=== PATIENT | female | born 1955 | race Caucasian/White ===

== ENCOUNTER 2019-09-25 09:59 | Outpatient (CLI) | payer MEDICARE, MEDICAID, SELFPAY ==
--- NOTE | 2019-09-25 10:13 | US_ITS ---
WS: [id number] ADDITIONAL VIEWS LEFT MAMMOGRAM LEFT BREAST ULTRASOUND HISTORY: ABNORMAL BREAST EXAM COMPARISON: 07/23/2019 and 06/19/2016 LEFT MAMMOGRAM: Spot compression views and true ML. Persistent and progressive skin thickening along the anterior breast. Skin thickening measures up to 6.3 mm anteriorly around the nipple. There is no underlying mass. Single benign-appearing calcificati on. LEFT BREAST ULTRASOUND 2-D and color Doppler imaging submitted. Ultrasound is directed to the anterior LEFT breast in the subareolar location. There is soft tissue t hickening and edema. More prominent skin thickening near the 10:00 axis by the nipple. There is no in traparenchymal mass identified. No enlarged lymph nodes. There are several benign-appearing lymph nod es in the LEFT axilla with normal fatty roopa. Notified Jenny Roman DO at 09/25/2019 11:20 AM. US/US breast LT limited* [id number] IMPRESSION: BI-RADS: 4C-Suspicious: Moderate FOLLOW UP: Biopsy Recommended 1. Progressive skin thickening around the LEFT nipple. Findings suspicious for inflammatory breast cancer or Paget's disease. No discrete mass identified are a 2. Punch biopsy recommended.
== END 2019-09-25 10:00 | disposition home or self-care (01) ==
LOC: RADSHAW 10:05
PROVIDERS: Family Provider Family Medicine; PCP Family Medicine; Visit Provider Family Medicine
DX: N63.42 Unspecified lump in left breast, subareolar (principal); N64.59 Other signs and symptoms in breast; R93.89 Abnormal findings on diagnostic imaging of other specified body structures
CPT/HCPCS: 76642; 77065

== ENCOUNTER → 2019-10-21 10:54 | Outpatient (BNVA) | payer MEDICARE, MEDICAID, SELFPAY | PROVIDERS: Family Provider Family Medicine; PCP Family Medicine; Visit Provider Nurse Practitioner | DX: F33.2 Major depressive disorder, recurrent severe without psychotic features (principal); F10.21 Alcohol dependence, in remission; F17.218 Nicotine dependence, cigarettes, with other nicotine-induced disorders | CPT/HCPCS: 99213 ==

== ENCOUNTER → 2020-04-12 08:35 | Outpatient (BNVA) | payer MEDICARE, MEDICAID, SELFPAY | PROVIDERS: Family Provider Family Medicine; PCP Family Medicine; Visit Provider Nurse Practitioner | DX: F33.2 Major depressive disorder, recurrent severe without psychotic features (principal); F10.21 Alcohol dependence, in remission; F17.218 Nicotine dependence, cigarettes, with other nicotine-induced disorders | CPT/HCPCS: 99213 ==

== ENCOUNTER 2020-04-21 18:34 | Emergency (ER) | payer MEDICARE, MEDICAID, SELFPAY ==
[2020-04-21 18:50] VITALS: BP 201/75; PULSE 86; RESP 18; TEMP 39.1; O2SAT 91; BMI 23.0
--- NOTE | 2020-04-21 19:42 | XRR_ITS ---
PROCEDURE INFORMATION: Exam: XR Chest, 1 View Exam date and time: 04/21/2020 8:01 PM Age: 64 years old Clinical indication: Fever; Patient HX: Throat pain and swelling; Additional info: Fever x 2 days TECHNIQUE: Imaging protocol: XR of the chest Views: 1 view. COMPARISON: CR Chest 1 [place] [id number] 06/25/2018 1:00 PM FINDINGS: Lungs: Left upper lobe and bilateral lower lung interstitial or partially alveolar opacities. Pleural space: Unremarkable. No pleural effusion. No pneumothorax. Heart/Mediastinum: Stable heart size. Bones/joints: Plate fixation lower cervical spine. Degenerative change of thoracic spine. Osteopenia. XR/XR chest 1V portable [id number] IMPRESSION: Left upper lobe and bilateral lower lung opacities concerning for pneumonia could be atypical or viral in origin.
--- NOTE | 2020-04-21 19:47 | W.ED.FEVER ---
HPI - Fever General: Chief Complaint: Fever Stated Complaint: throat pain and swelling Time Seen by Provider: 04/21/20 19:42 Source: patient Mode of arrival: ambulatory Limitations: no limitations History of Present Illness: HPI Narrative: 64-year-old female comes in with 2-day history of sore throat and fever. Patient denies any other complaints P. Patient appears mildly unwell. Patient appears in mild pain. MD elicited complaint: fever Review of Systems General: Reports: 10 or more systems reviewed and unremarkable except in HPI and below Const: Reports: fever(s) ENMT: Reports: throat pain PFSH ED PFSH: Medical History (Updated 04/21/20 @ 21:44 by TOMASZ Castillo) Alcohol dependence, in remission Major depressive disorder, recurrent severe without psychotic features Nicotine dependence, cigarettes, with other nicotine-induced disorders Social History (Updated 10/21/19 @ 11:03 by Aida Olson LPN) Smoking and tobacco status: current every day smoker cigarettes Packs smoked per day: 1 Smoking risk assessment/counseling performed?: Yes Tobacco counseling given: counseling >3 minutes Physical Exam Const: COMMON NORMALS: no acute distress and patient oriented x3 GENERAL APPEARANCE: cooperative HENMT: COMMON NORMALS: normocephalic, TM's normal bilaterally and Normal external nose present HEAD & SCALP: normal to inspection and normocephalic NOSE: Normal external nose present TYMPANIC MEMBRANE: TM's normal bilaterally MOUTH: Normal oral and palatal mucosa present THROAT: other Eye: GENERAL EYE: appearance normal, both eyes and all related structures Neck/C-Spine: COMMON NORMALS: full ROM Lymph: LYMPHATIC: no lymphadenopathy noted Chest: COMMONS NORMALS: normal inspection of the chest Resp: COMMON NORMALS: normal respiratory effort EFFORT & INSPECTION: Yes able to speak in complete sentences Cardio: COMMON NORMALS: regular rate and regular rhythm RATE: regular rate RHYTHM: regular rhythm GI: COMMON NORMALS: non-tender : COMMON NORMALS: Yes no CVA tenderness BLADDER/KIDNEY EXAM: Yes no CVA tenderness Back/Pelvis: COMMON NORMALS: no CVA tenderness and thoracic and lumbar spine normal to inspection Extremity: COMMON NORMALS: normal to inspection Neuro: COMMON NORMALS: patient oriented x3 and moves all extremities Psych: COMMON NORMALS: mental status grossly normal and cooperative Skin: COMMON NORMALS: no rashes or lesions noted GENERAL SKIN EXAM: no rashes or lesions noted Course Vital Signs: Vital signs: Vital Signs Temperature 99.2 F 04/21/20 21:23 Pulse Rate 74 04/21/20 21:23 Respiratory Rate 20 H 04/21/20 21:23 Blood Pressure 181/74 04/21/20 21:23 Pulse Oximetry 96 04/21/20 21:23 MDM - Fever MDM Narrative: Medical decision making narrative: Patient comes in today with complaints of sore throat and fever. On exam patient has erythema to the pharynx with exudate to the tonsils. Differential diagnosis includes but not limited to viral infection, strep pharyngitis, influenza. COVID and influenza are both negative. Strep pharyngitis was negative. Patient was given medication for treatment of sore throat with some improvement. Patient will be started on antibiotics as directed with cephalexin 503 times a day for 7 days. Reviewed exam with patient with recommendations for treatment follow-up. Patient reported understanding. Lab Data: Labs: Lab Results 04/21/20 04/21/20 04/21/20 Range/Units 20:14 20:14 20:20 WBC (4.0-10.0) 10^3/ uL RBC (4.1-5.3) 10^6/u L Hgb (11.5-15.3) g/dL Hct (37.0-47.0) % MCV (81-99) fL MCH (28.0-34.0) pg MCHC (30.0-36.0) g/dL RDW (12.1-15.1) % Plt Count (130-400) 10^3/c mm MPV (7.4-10.4) fL Neut % (Auto) % Lymph % (Auto) % [place] % (Auto) % Eos % (Auto) % Baso % (Auto) % Neut # (Auto) (1.8-7.7) 10^3/u L Lymph # (Auto) (0.8-4.8) 10^3/u L [place] # (Auto) (0.2-0.9) 10^3/u L Eos # (Auto) (0.0-0.8) 10^3/u L Baso # (Auto) (0.0-0.1) 10^3/u L Nucleated RBC % (a uto) % Nucleated RBCs # /100WBC Sodium (136-145) mmol/L Potassium (3.5-5.1) mmol/L Chloride (98-107) mmol/L Carbon Dioxide (22-29) mmol/L Anion Gap (5-19) BUN (8-23) mg/dL Creatinine (0.5-0.9) mg/dL GFR Calculation (90-130) mL/min Glucose (65-115) mg/dL Calculated Osmolal ity (285-295) mOsm/k g Lactic Acid (0.5-2.2) mmol/L Calcium (8.5-10.5) mg/dL Total Bilirubin (0.15-1.2) mg/dL AST (0-32) U/L ALT (0-33) U/L Alkaline Phosphata se (35-105) IU/L Total Protein (6.6-8.7) g/dL Albumin (3.5-5.2) g/dL Globulin (1.3-4.6) g/dL Urine Color Yellow (Yellow) Urine Appearance Cloudy (CLEAR) Urine pH 6 (5-7) Ur Specific Gravit y 1.010 (1.005-1.030) Urine Protein 3+ H (Negative) Urine Glucose (UA) Norm (Normal) Urine Ketones Negative (Negative) Urine Blood 2+ H (Negative) Urine Nitrate Negative (Negative) Urine Bilirubin Neg (Negative) Urine Urobilinogen 8 H (Negative) mg/dL Ur Leukocyte Maranda ase Negative (Negative) Urine RBC 5-10 H (0-2) /hpf Urine WBC 0-4 H (0-5) /hpf Ur Squamous Epith Cells 0-4 H (0-5) /hpf Amorphous Sediment Not Reportable Urine Bacteria 1+ H (NONE) /hpf Influenza Type A A g (Negative) Influenza Type B A g (Negative) SARS-CoV-2 Ag (Rap id) Negative (Negative) Group A Strep Rapi d Negative (Negative) 04/21/20 04/21/20 04/21/20 Range/Units 20:30 20:30 20:30 WBC 15.4 H (4.0-10.0) 10^3/ uL RBC 4.92 (4.1-5.3) 10^6/u L Hgb 14.7 (11.5-15.3) g/dL Hct 43.8 (37.0-47.0) % MCV 89.0 (81-99) fL MCH 29.9 (28.0-34.0) pg MCHC 33.6 (30.0-36.0) g/dL RDW 12.3 (12.1-15.1) % Plt Count 187 (130-400) 10^3/c mm MPV 11.1 H (7.4-10.4) fL Neut % (Auto) 84.1 % Lymph % (Auto) 11.3 % [place] % (Auto) 3.0 % Eos % (Auto) 0.5 % Baso % (Auto) 0.5 % Neut # (Auto) 12.95 H (1.8-7.7) 10^3/u L Lymph # (Auto) 1.7 (0.8-4.8) 10^3/u L [place] # (Auto) 0.5 (0.2-0.9) 10^3/u L Eos # (Auto) 0.1 (0.0-0.8) 10^3/u L Baso # (Auto) 0.1 (0.0-0.1) 10^3/u L Nucleated RBC % (a uto) 0 % Nucleated RBCs # 0.0 /100WBC Sodium 134 L (136-145) mmol/L Potassium 3.1 L (3.5-5.1) mmol/L Chloride 99 (98-107) mmol/L Carbon Dioxide 20 L (22-29) mmol/L Anion Gap 18.1 (5-19) BUN 9 (8-23) mg/dL Creatinine 0.5 (0.5-0.9) mg/dL GFR Calculation 124.2 (90-130) mL/min Glucose 111 (65-115) mg/dL Calculated Osmolal ity 277 L (285-295) mOsm/k g Lactic Acid 1.5 (0.5-2.2) mmol/L Calcium 9.4 (8.5-10.5) mg/dL Total Bilirubin 0.8 (0.15-1.2) mg/dL AST 23 (0-32) U/L ALT 12 (0-33) U/L Alkaline Phosphata se 111 H (35-105) IU/L Total Protein 7.3 (6.6-8.7) g/dL Albumin 3.8 (3.5-5.2) g/dL Globulin 3.5 (1.3-4.6) g/dL Urine Color (Yellow) Urine Appearance (CLEAR) Urine pH (5-7) Ur Specific Gravit y (1.005-1.030) Urine Protein (Negative) Urine Glucose (UA) (Normal) Urine Ketones (Negative) Urine Blood (Negative) Urine Nitrate (Negative) Urine Bilirubin (Negative) Urine Urobilinogen (Negative) mg/dL Ur Leukocyte Maranda ase (Negative) Urine RBC (0-2) /hpf Urine WBC (0-5) /hpf Ur Squamous Epith Cells (0-5) /hpf Amorphous Sediment Urine Bacteria (NONE) /hpf Influenza Type A A g (Negative) Influenza Type B A g (Negative) SARS-CoV-2 Ag (Rap id) (Negative) Group A Strep Rapi d (Negative) 04/21/20 Range/Units 20:53 WBC (4.0-10.0) 10^3/ uL RBC (4.1-5.3) 10^6/u L Hgb (11.5-15.3) g/dL Hct (37.0-47.0) % MCV (81-99) fL MCH (28.0-34.0) pg MCHC (30.0-36.0) g/dL RDW (12.1-15.1) % Plt Count (130-400) 10^3/c mm MPV (7.4-10.4) fL Neut % (Auto) % Lymph % (Auto) % [place] % (Auto) % Eos % (Auto) % Baso % (Auto) % Neut # (Auto) (1.8-7.7) 10^3/u L Lymph # (Auto) (0.8-4.8) 10^3/u L [place] # (Auto) (0.2-0.9) 10^3/u L Eos # (Auto) (0.0-0.8) 10^3/u L Baso # (Auto) (0.0-0.1) 10^3/u L Nucleated RBC % (a uto) % Nucleated RBCs # /100WBC Sodium (136-145) mmol/L Potassium (3.5-5.1) mmol/L Chloride (98-107) mmol/L Carbon Dioxide (22-29) mmol/L Anion Gap (5-19) BUN (8-23) mg/dL Creatinine (0.5-0.9) mg/dL GFR Calculation (90-130) mL/min Glucose (65-115) mg/dL Calculated Osmolal ity (285-295) mOsm/k g Lactic Acid (0.5-2.2) mmol/L Calcium (8.5-10.5) mg/dL Total Bilirubin (0.15-1.2) mg/dL AST (0-32) U/L ALT (0-33) U/L Alkaline Phosphata se (35-105) IU/L Total Protein (6.6-8.7) g/dL Albumin (3.5-5.2) g/dL Globulin (1.3-4.6) g/dL Urine Color (Yellow) Urine Appearance (CLEAR) Urine pH (5-7) Ur Specific Gravit y (1.005-1.030) Urine Protein (Negative) Urine Glucose (UA) (Normal) Urine Ketones (Negative) Urine Blood (Negative) Urine Nitrate (Negative) Urine Bilirubin (Negative) Urine Urobilinogen (Negative) mg/dL Ur Leukocyte Maranda ase (Negative) Urine RBC (0-2) /hpf Urine WBC (0-5) /hpf Ur Squamous Epith Cells (0-5) /hpf Amorphous Sediment Urine Bacteria (NONE) /hpf Influenza Type A A g Negative (Negative) Influenza Type B A g Negative (Negative) SARS-CoV-2 Ag (Rap id) (Negative) Group A Strep Rapi d (Negative) Discharge Plan Discharge Patient Disposition: Home Clinical Impression: Pharyngitis Qualifiers: Pharyngitis/tonsillitis etiology: unspecified etiology Qualified Code(s): J02.9 - Acute pharyngitis, unspecified Condition: Stable Prescriptions: New cephalexin 500 mg capsule 500 mg PO TID 7 Days Qty: 21 RF: 0 No Action levothyroxine 50 mcg capsule 50 mcg PO DAILY RF: 0 clonazepam 0.5 mg tablet 0.5 mg PO BID PRNRF: 0 pravastatin 80 mg tablet 80 mg PO DAILY RF: 0 pregabalin 50 mg capsule 50 mg PO BID RF: 0 tramadol 50 mg tablet 100 mg PO TID PRNRF: 0 metoprolol tartrate 50 mg tablet 50 mg PO BID RF: 0 gemfibrozil 600 mg tablet 600 mg PO BID RF: 0 hydralazine 25 mg tablet 25 mg PO QID RF: 0 trazodone 100 mg tablet 200 mg PO .QHS Qty: 60 RF: 2 escitalopram oxalate [Lexapro] 20 mg tablet 20 mg PO DAILY Qty: 30 RF: 1 Discharge Orders: Discharge Order (Routine); Ordered 04/21/20 Ordered By: Vikash Damon Referrals: Hue Sandra DO [Family Provider] - Jenny Roman DO [Primary Care Provider] - Discharge Diet: Usual diet Discharge Activity: Increase activity as tolerated Patient Instructions: Pharyngitis (ED) Activity Restrictions/Additional Instructions: Drink plenty of fluids. Healthy diet. Take antibiotics as directed. Follow-up with primary care. Return to the emergency department for worsening symptoms. 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
[2020-04-21 20:49] LABS: Rapid Strep A Test Negative (Negative)
[2020-04-21] MEDS: dexamethasone 4 mg/mL INJ 8 MG IVP (20:49)
[2020-04-21] MEDS: sodium chloride 0.9% 1,000 ML 999 ML IV (20:49)
[2020-04-21] MEDS: ketorolac 30 mg/mL INJ 15 MG IVP (20:50)
[2020-04-21 20:52] LABS: SARS Covid-2 Antigen Negative (Negative)
[2020-04-21 20:52] LABS: Protein Urine 3+ (Negative); Urine Appearance Cloudy (CLEAR); Urine Color Yellow (Yellow); pH Urine 6 (5-7)
[2020-04-21 20:53] LABS: Add Urine Microscopic? YES; Bacteria Urine 1+ /hpf; Bilirubin Urine Neg (Negative); Blood Urine 2+ (Negative); Glucose Urine UA Norm (Normal); Ketones Urine Negative (Negative); Leukocyte Esterase Urine Negative (Negative); Nitrate Urine Negative (Negative); Squamous Epithelial Cell Urine 0-4 /hpf (0-5); Urobilinogen Urine 8 mg/dL (Negative); WBC Urine 0-4 /hpf (0-5)
[2020-04-21 20:54] LABS: Basophils # 0.1 10^3/uL (0.0-0.1); Basophils % 0.5 %; Eosinophils # 0.1 10^3/uL (0.0-0.8); Eosinophils % 0.5 %; Hematocrit 43.8 % (37.0-47.0); Hemoglobin 14.7 g/dL (11.5-15.3); Lymphocytes # 1.7 10^3/uL (0.8-4.8); Lymphocytes % 11.3 %; Mean Corpuscular HGB Conc 33.6 g/dL (30.0-36.0); Mean Corpuscular Hemoglobin 29.9 pg (28.0-34.0); Mean Platelet Volume 11.1 fL (7.4-10.4); Monocytes # 0.5 10^3/uL (0.2-0.9); Neutrophils # 12.95 10^3/uL (1.8-7.7); Neutrophils % 84.1 %; Nucleated Red Blood Cells % 0 %; Platelet Count 187 10^3/cmm (130-400); Red Blood Count 4.92 10^6/uL (4.1-5.3); Red Cell Distribution Width 12.3 % (12.1-15.1); White Blood Count 15.4 10^3/uL (4.0-10.0)
[2020-04-21 21:23] VITALS: BP 181/74; PULSE 74; RESP 20; TEMP 37.3; O2SAT 96
[2020-04-21 21:24] LABS: Lactic Sepsis W/Reflex 1.5 mmol/L (0.5-2.2)
[2020-04-21 21:25] LABS: Alanine Aminotransferase 12 U/L (0-33); Albumin Level 3.8 g/dL (3.5-5.2); Alkaline Phosphatase 111 IU/L (35-105); Anion Gap 18.1 (5-19); Aspartate Amino Transferase 23 U/L (0-32); Blood Urea Nitrogen 9 mg/dL (8-23); Calcium 9.4 mg/dL (8.5-10.5); Carbon Dioxide 20 mmol/L (22-29); Chloride 99 mmol/L (98-107); Creatinine Clr Calc Pharmacy 98.7425; Globulin 3.5 g/dL (1.3-4.6); Glomerular Filtration Rate 124.2 mL/min (90-130); Glucose 111 mg/dL (65-115); Osmolality Calculated 277 mOsm/kg (285-295); Potassium 3.1 mmol/L (3.5-5.1); Sodium 134 mmol/L (136-145); Total Bilirubin 0.8 mg/dL (0.15-1.2); Total Protein 7.3 g/dL (6.6-8.7)
[2020-04-21 21:36] LABS: Influenza A by IFA Negative (Negative); Influenza B by IFA Negative (Negative)
[2020-04-21 22:21] VITALS: BP 148/88; PULSE 80; RESP 18; TEMP 37
[2020-04-21] MEDS: cephALEXin 500 mg Capsule PO (22:33)
== END 2020-04-21 22:34 | disposition home or self-care (01) ==
PROVIDERS: Emergency Provider Nurse Practitioner Family; Family Provider Family Medicine; PCP Family Medicine
DX: J02.9 Acute pharyngitis, unspecified (principal); F17.210 Nicotine dependence, cigarettes, uncomplicated
CPT/HCPCS: 12345; 36415; 71045; 80053; 81001; 83605; 85025; 87040; 87081; 87426; 87804; 87880; 96365; 96375; 99283; J1100; J1885; J7030

== ENCOUNTER → 2020-07-05 07:46 | Outpatient (BNVA) | payer MEDICARE, MEDICAID, SELFPAY | PROVIDERS: Family Provider Family Medicine; PCP Family Medicine; Visit Provider Nurse Practitioner | DX: F33.2 Major depressive disorder, recurrent severe without psychotic features (principal); F10.21 Alcohol dependence, in remission; F17.218 Nicotine dependence, cigarettes, with other nicotine-induced disorders | CPT/HCPCS: 99213 ==

== ENCOUNTER → 2020-11-15 11:59 | Outpatient (BNVA) | payer MEDICARE, MEDICAID, SELFPAY | PROVIDERS: Family Provider Family Medicine; PCP Family Medicine; Visit Provider Nurse Practitioner | DX: F33.2 Major depressive disorder, recurrent severe without psychotic features (principal); F17.218 Nicotine dependence, cigarettes, with other nicotine-induced disorders; F10.21 Alcohol dependence, in remission | CPT/HCPCS: 99214 ==

== ENCOUNTER → 2021-02-09 11:09 | Outpatient (BNVA) | payer MEDICARE, MEDICAID, SELFPAY | PROVIDERS: Family Provider Family Medicine; PCP Family Medicine; Visit Provider Nurse Practitioner | DX: F33.2 Major depressive disorder, recurrent severe without psychotic features (principal); F10.21 Alcohol dependence, in remission; F17.218 Nicotine dependence, cigarettes, with other nicotine-induced disorders | CPT/HCPCS: 99214 ==

== ENCOUNTER → 2021-05-16 09:13 | Outpatient (BNVA) | payer MEDICARE, MEDICAID, SELFPAY | PROVIDERS: Family Provider Family Medicine; PCP Family Medicine; Visit Provider Nurse Practitioner | DX: F33.2 Major depressive disorder, recurrent severe without psychotic features (principal); F10.21 Alcohol dependence, in remission; F17.218 Nicotine dependence, cigarettes, with other nicotine-induced disorders | CPT/HCPCS: 99214 ==

== ENCOUNTER 2021-05-29 13:26 | Outpatient (CLI) | payer MEDICARE, MEDICAID, SELFPAY ==
--- NOTE | 2021-05-29 13:36 | MM_ITS ---
WS: [id number] BILATERAL SCREENING DIGITAL MAMMOGRAM WITH CAD HISTORY: SCREENING COMPARISON: 09/25/2019, 07/23/2019, 06/19/2016 Bilateral CC and MLO views submitted. Computer aided detection analyzed. Breast composition: The breasts are heterogeneously dense, which may obscure small masses. No suspici ous masses, microcalcifications or architectural distortion. Asymmetries and vascular calcifications within each breast are stable. No new or increasing asymmetry. MM/[place] [id number] IMPRESSION: BI-RADS: 2-Benign FOLLOW UP: 1 Year Follow-up
== END 2021-05-29 13:27 | disposition home or self-care (01) ==
LOC: RADSHAW 13:34
PROVIDERS: PCP Family Medicine; Visit Provider Family Medicine
DX: Z12.31 Encounter for screening mammogram for malignant neoplasm of breast (principal)
CPT/HCPCS: 77067

== ENCOUNTER 2021-06-29 10:04 | Emergency (ER) | payer MEDICARE, MEDICAID, SELFPAY ==
[2021-06-29 10:05] VITALS: BP 180/97; PULSE 89; TEMP 37.2; O2SAT 95; BMI 26.4
--- NOTE | 2021-06-29 10:36 | W.ED.SOB ---
HPI - SOB/Dyspnea General: Chief Complaint: Shortness of Breath/Dyspnea Stated Complaint: COUGH,SOB Time Seen by Provider: 06/29/21 10:08 Source: patient and EMS Mode of arrival: EMS History of Present Illness: HPI Narrative: 66-year-old female with history of COPD brought in by EMS with complaints of cough, difficulty breathing, respiratory congestion, nausea and vomiting. Has been prescribed home O2, but is not using. When EMS arrived she was 89% on room air. No sick contacts. Associated symptoms: Reports chest congestion, nausea and vomiting; Deny chest pain, extremity pain, fever(s) or palpitations Review of Systems General: Reports: 10 or more systems reviewed and unremarkable except in HPI and below Const: Reports: body aches, fatigue and malaise; Denies: fever(s), chills or night sweats Eyes: Denies: change in vision or blurry vision ENMT: Denies: throat pain or hoarseness Card: Denies: chest pain or palpitations Resp: Reports: dyspnea, productive cough, wheezing, change in phlegm color and chest congestion GI: Reports: nausea and vomiting : Denies: difficulty voiding or dysuria Musc: Denies: neck pain, back pain, extremity pain or extremity swelling Skin/Breast: Reports: rash and pruritus Neuro: Denies: headache(s), numbness in extremities or frequent falls All/Imm: Denies: urticaria or throat swelling PFSH ED PFSH: Medical History Acute exacerbation of chronic obstructive airways disease Alcohol dependence, in remission Major depressive disorder, recurrent severe without psychotic features Nicotine dependence, cigarettes, with other nicotine-induced disorders Psychiatric care Social History Smoking and tobacco status: current every day smoker cigarettes Packs smoked per day: 1 Smoking risk assessment/counseling performed?: Yes Tobacco counseling given: counseling >3 minutes Physical Exam Const: COMMON NORMALS: patient oriented x3 GENERAL APPEARANCE: disheveled, ill appearing and frail appearing HENMT: COMMON NORMALS: normocephalic and atraumatic HEAD & SCALP: normocephalic and atraumatic FACE & SINUS: normal facial exam and face symmetric Eye: COMMON NORMALS: Equal, round and reactive pupils present, EOMs intact bilaterally, conjunctivae normal and no scleral icterus CONJUNCTIVA: Yes conjunctivae normal PUPIL: Yes Equal, round and reactive pupils present Neck/C-Spine: COMMON NORMALS: full ROM, no lymphadenopathy and supple; negative for no JVD Lymph: LYMPHATIC: no lymphadenopathy noted and no lymphedema noted Chest: COMMONS NORMALS: normal inspection of the chest Resp: EFFORT & INSPECTION: Yes able to speak in complete sentences, Yes tachypneic, Yes Actively coughing, Yes uses accessory muscles and Yes audible wheezes Cardio: COMMON NORMALS: regular rate and regular rhythm; negative for no JVD RATE: regular rate RHYTHM: regular rhythm GI: COMMON NORMALS: Soft to palpation PALPATION: Yes Soft to palpation, No Tenderness to palpation present (GI), No Guarding due to palpation present (GI) and No Rigid due to palpation Extremity: COMMON NORMALS: normal to inspection, full ROM and capillary refill normal; negative for no clubbing, cyanosis or edema Neuro: COMMON NORMALS: patient oriented x3, CN's II-XII intact bilaterally and no focal motor deficits Psych: COMMON NORMALS: mental status grossly normal and speech normal SPEECH: Yes normal speech Skin: GENERAL SKIN EXAM: dry skin and Excoriation Course Vital Signs: Vital signs: Vital Signs Temperature 98.9 F 06/29/21 10:05 Pulse Rate 88 06/29/21 13:42 Respiratory Rate 17 06/29/21 13:42 Blood Pressure 180/97 06/29/21 10:05 Pulse Oximetry 94 06/29/21 13:42 MDM - SOB/Dyspnea MDM Narrative: Medical decision making narrative: 66-year-old female with history of COPD has had a cough, worsening over the last week. Has also had some nausea and vomiting, generalized malaise and weakness. Decreased appetite and intake. Chest x-ray does not show any acute infiltrates. Covid?19 . Stable on 4 L nasal cannula, she has been on home oxygen in the past, but and she has not had it since. Ambulatory O2 assessment was performed, patient needs between 3 and 5 L depending on activity level. CTA negative for acute PE. Magnesium low at 1.3, given a dose of IV mag sulfate, BNP elevated at 1292, no baseline available. No signs of fluid overload or CHF on x-ray or exam, so likely this is due to chronic lung disease. Treated with IV Solu-Medrol, doxycycline, continue oral course at home, follow-up with PCP in the next 3 days. Patient was able to ambulate without difficulty, home oxygen was arranged prior to discharge, instructed to return immediately for any worsening symptoms. Differential Diagnosis: Shortness of Breath Differential Diagnosis: Likely acute exacerbation of chronic obstructive airways disease, congestive heart failure and pulmonary embolism Medical Records: Attestation: I reviewed the patient's medical records. Lab Data: Attestation: I reviewed the patient's lab results. Labs: Lab Results 06/29/21 06/29/21 06/29/21 10:56 10:56 11:22 WBC 5.1 10^3/uL 10^3/ uL (4.0-10.0) RBC 5.93 10^6/uL H 10 ^6/uL (4.1-5.3) Hgb 17.3 g/dL H g/dL (11.5-15.3) Hct 50.4 % H % (37.0-47.0) MCV 85.0 fl fl (81-99) MCH 29.2 pg pg (28.0-34.0) MCHC 34.3 g/dL g/dL (30.0-36.0) RDW 11.9 % L % (12.1-15.1) Plt Count 151 10^3/cmm 10^3 /cmm (130-400) MPV 11.2 fL H fL (7.4-10.4) Neut % (Auto) 79.5 % % Lymph % (Auto) 14.8 % % [place] % (Auto) 5.1 % % Eos % (Auto) 0.0 % % Baso % (Auto) 0.4 % % Neut # (Auto) 4.03 10^3/uL 10^3 /uL (1.8-7.7) Lymph # (Auto) 0.8 10^3/uL 10^3/ uL (0.8-4.8) [place] # (Auto) 0.3 10^3/uL 10^3/ uL (0.2-0.9) Eos # (Auto) 0.0 10^3/uL 10^3/ uL (0.0-0.8) Baso # (Auto) 0.0 10^3/uL 10^3/ uL (0.0-0.1) Nucleated RBC % (a uto) 0 % % Nucleated RBCs # 0.0 /100WBC /100W BC Sodium 134 mmol/L L mmol /L (136-145) Potassium 3.5 mmol/L mmol/L (3.5-5.1) Chloride 95 mmol/L L mmol/ L (98-107) Carbon Dioxide 20 mmol/L L mmol/ L (22-29) Anion Gap 22.5 H (5-19) BUN 7 mg/dL L mg/dL (8-23) Creatinine 0.5 mg/dL mg/dL (0.5-0.9) GFR Calculation 123.4 mL/min mL/m in (90-130) Glucose 110 mg/dL mg/dL (65-115) Calculated Osmolal ity 277 mOsm/kg L mOs m/kg (285-295) Calcium 9.0 mg/dL mg/dL (8.5-10.5) Magnesium 1.3 mg/dL L mg/dL (1.7-2.3) Total Bilirubin 0.4 mg/dL mg/dL (0.15-1.2) AST 14 U/L U/L (0-32) ALT < 5 U/L U/L (0-33) Alkaline Phosphata se 80 IU/L IU/L (35-105) NT-Pro-B Natriuret Pep 1292 pg/mL H pg/m L (0-125) Total Protein 7.7 g/dL g/dL (6.6-8.7) Albumin 4.4 g/dL g/dL (3.5-5.2) Globulin 3.3 g/dL g/dL (1.3-4.6) SARS-CoV-2 Ag (Rap id) Negative (Negative) Discharge Plan Discharge Patient Disposition: Home Clinical Impression: Acute exacerbation of chronic obstructive airways disease, Hypomagnesemia Condition: Stable Prescriptions: New prednisone 20 mg tablet 60 mg PO DAILY 5 Days Qty: 15 RF: 0 doxycycline hyclate 100 mg capsule 100 mg PO BID 7 Days Qty: 14 RF: 0 magnesium oxide 420 mg tablet 420 mg PO DAILY Qty: 30 RF: 0 No Action levothyroxine 50 mcg capsule 50 mcg PO DAILY RF: 0 clonazepam 0.5 mg tablet 0.5 mg PO BID PRNRF: 0 trazodone 100 mg tablet 200 mg PO .QHS Qty: 60 RF: 2 escitalopram oxalate [Lexapro] 20 mg tablet 20 mg PO DAILY Qty: 30 RF: 2 pravastatin 80 mg tablet 80 mg PO DAILY RF: 0 pregabalin 50 mg capsule 50 mg PO BID RF: 0 tramadol 50 mg tablet 100 mg PO TID PRNRF: 0 metoprolol tartrate 50 mg tablet 50 mg PO BID RF: 0 gemfibrozil 600 mg tablet 600 mg PO BID RF: 0 hydralazine 25 mg tablet 25 mg PO QID RF: 0 Discharge Orders: Discharge ED (Routine); Ordered 06/29/21 Ordered By: Dilcia Ulrich Other Ambulatory Orders: DME: Oxygen (Order) Location: None Selected Ordered By: Dilcia Ulrich Referrals: Jenny Roman DO [Primary Care Provider] - Discharge Diet: Advance as tolerated Discharge Activity: Increase activity as tolerated and Oxygen as instructed Patient Instructions: Emphysema (ED) Activity Restrictions/Additional Instructions: Follow-up with your primary care doctor in the next 3 to 5 days. Return immediately to the ER if you develop worsening difficulty breathing, fever, severe chest pain, or any other concerning changes. 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
[2021-06-29 11:01] LABS: Basophils % 0.4 %; Hematocrit 50.4 % (37.0-47.0); Hemoglobin 17.3 g/dL (11.5-15.3); Lymphocytes # 0.8 10^3/uL (0.8-4.8); Lymphocytes % 14.8 %; Mean Corpuscular HGB Conc 34.3 g/dL (30.0-36.0); Mean Corpuscular Hemoglobin 29.2 pg (28.0-34.0); Mean Platelet Volume 11.2 fL (7.4-10.4); Monocytes # 0.3 10^3/uL (0.2-0.9); Monocytes % 5.1 %; Neutrophils # 4.03 10^3/uL (1.8-7.7); Neutrophils % 79.5 %; Nucleated Red Blood Cells % 0 %; Platelet Count 151 10^3/cmm (130-400); Red Blood Count 5.93 10^6/uL (4.1-5.3); Red Cell Distribution Width 11.9 % (12.1-15.1); White Blood Count 5.1 10^3/uL (4.0-10.0)
--- NOTE | 2021-06-29 11:27 | XRR_ITS ---
PROCEDURE INFORMATION: Exam: XR Chest Exam date and time: 06/29/2021 11:27 AM Age: 66 years old Clinical indication: Cough and shortness of breath; Patient HX: Cough x 1wk, increased BP and pulse, chest pain; Additional info: Dyspnea TECHNIQUE: Imaging protocol: XR of the chest. Views: 1 view. COMPARISON: CR XR chest 1V portable [id number] 04/21/2020 7:48 PM FINDINGS: Lungs: Unremarkable. No consolidation. Pleural spaces: Unremarkable. No pleural effusion. No pneumothorax. Heart/Mediastinum: Unremarkable. No cardiomegaly. Bones/joints: Postsurgical hardware cervical spine. Other findings: Similar findings are seen comparing to prior examination. XR/XR chest 1V portable [id number] IMPRESSION: 1. No acute findings. 2. Postoperative hardware cervical spine Radiation Dose CTDIVOL = (mGy): DLP = (mGy-cm)
[2021-06-29 11:42] LABS: Alanine Aminotransferase < 5 U/L (0-33); Albumin Level 4.4 g/dL (3.5-5.2); Alkaline Phosphatase 80 IU/L (35-105); Anion Gap 22.5 (5-19); Aspartate Amino Transferase 14 U/L (0-32); Blood Urea Nitrogen 7 mg/dL (8-23); Carbon Dioxide 20 mmol/L (22-29); Chloride 95 mmol/L (98-107); Globulin 3.3 g/dL (1.3-4.6); Glomerular Filtration Rate 123.4 mL/min (90-130); Glucose 110 mg/dL (65-115); Magnesium 1.3 mg/dL (1.7-2.3); NT Pro B Type Natriuretic Pept 1292 pg/mL (0-125); Osmolality Calculated 277 mOsm/kg (285-295); Potassium 3.5 mmol/L (3.5-5.1); Sodium 134 mmol/L (136-145); Total Bilirubin 0.4 mg/dL (0.15-1.2); Total Protein 7.7 g/dL (6.6-8.7)
[2021-06-29 11:47] LABS: SARS Covid-2 Antigen Negative (Negative)
--- NOTE | 2021-06-29 11:51 | CTR_ITS ---
PROCEDURE INFORMATION: Exam: CTA Chest With Contrast Exam date and time: 06/29/2021 11:51 AM Age: 66 years old Clinical indication: Dyspnea; Additional info: Dyspnea, hypoxia TECHNIQUE: Imaging protocol: Computed tomographic angiography of the chest with contrast. 3D rendering (Not supervised by radiologist): MIP and/or 3D reconstructed images were created by the technologist. Radiation optimization: All CT scans at this facility use at least one of these dose optimization techniques: automated exposure control; mA and/or kV adjustment per patient size (includes targeted exams where dose is matched to clinical indication); or iterative reconstruction. Contrast material: OMNI 350; Contrast volume: 95 ml; Contrast route: INTRAVENOUS (IV); COMPARISON: CR (CHEST, ) 06/29/2021 11:34 AM RADIATION DOSE METRICS: Total DLP (mGy-cm): 496.87 FINDINGS: Pulmonary arteries: Normal. No pulmonary emboli. Aorta: Unremarkable. No aortic aneurysm. No aortic dissection. Lungs: Unremarkable. No consolidation. No masses. Pleural spaces: Unremarkable. No pneumothorax. No pleural effusion. Heart: Coronary artery calcifications are seen No cardiomegaly. No pericardial effusion. Lymph nodes: There are subcentimeter mediastinal lymph nodes present anterior to the ld measuring 20 mm and in the left paratracheal region measuring 5 mm. A subcarinal lymph node measures 14 mm Bones/joints: Metallic surgical hardware is seen in the cervical spine. There is a cortical defect in the central portion of the sternum which a appears to be a fracture. This finding may represent imaging artifact comparison to clinical parameters is recommended. No acute fracture. Soft tissues: Unremarkable. Other findings: Status post cholecystectomy. Left renal parapelvic cyst measuring [address]/CT angio chest PE protcl [id number] IMPRESSION: 1. Negative for pulmonary embolism. 2. Multiple mediastinal lymph nodes . 3. Coronary artery calcifications. 4. Status post cholecystectomy. 5. Parapelvic cyst left kidney 6. Metallic hardware cervical spine 7. Sternal fracture versus imaging artifact COMMENTS: Consistent with the [employer]'s Incidental Findings Committee white paper (J Am Sarahy Radiol 2018): Any incidental renal lesion less than 1 cm or classified as too small to characterize, or any incidental cystic renal lesion characterized as simple-appearing, is likely benign. No follow-up imaging is recommended for these lesions per consensus recommendations based on imaging criteria. Radiation Dose CTDIVOL = (mGy): DLP = 496.87 (mGy-cm)
[2021-06-29] MEDS: iohexol 350 mg/mL 100 mL Btl IV (12:18)
[2021-06-29 13:29] VITALS: O2SAT 86; O2SAT 88; O2SAT 92
[2021-06-29] MEDS: doxycycline 100 mg Tablet PO (13:38)
[2021-06-29] MEDS: magnesium sulfate premix 2 GM/50 ML PIGGYBACK IV (13:39)
[2021-06-29 13:42] VITALS: PULSE 88; RESP 17; O2SAT 94
[2021-06-29 16:12] VITALS: BP 177/104; PULSE 84; RESP 18; O2SAT 94
== END 2021-06-29 16:14 | disposition home or self-care (01) ==
PROVIDERS: Emergency Provider Family Medicine; PCP Family Medicine
DX: F17.210 Nicotine dependence, cigarettes, uncomplicated (principal); J44.1 Chronic obstructive pulmonary disease with (acute) exacerbation; E83.42 Hypomagnesemia; Z79.891 Long term (current) use of opiate analgesic
CPT/HCPCS: 71045; 71275; 80053; 83735; 83880; 85025; 87426; 96365; 96375; 99283; J2930; J3475; Q9967

== ENCOUNTER → 2021-08-09 09:11 | Outpatient (BNVA) | payer MEDICARE, MEDICAID, SELFPAY | PROVIDERS: PCP Family Medicine; Visit Provider Nurse Practitioner | DX: F33.2 Major depressive disorder, recurrent severe without psychotic features (principal); F10.21 Alcohol dependence, in remission; F17.218 Nicotine dependence, cigarettes, with other nicotine-induced disorders | CPT/HCPCS: 99214 ==

== ENCOUNTER → 2021-11-08 12:47 | Outpatient (BNVA) | payer MEDICARE, MEDICAID, SELFPAY | PROVIDERS: PCP Family Medicine; Visit Provider Nurse Practitioner | DX: F33.2 Major depressive disorder, recurrent severe without psychotic features (principal); F10.21 Alcohol dependence, in remission; F17.218 Nicotine dependence, cigarettes, with other nicotine-induced disorders | CPT/HCPCS: 99214 ==

== ENCOUNTER 2022-12-24 07:02 | Emergency (ER) | payer MEDICARE, MEDICAID, SELFPAY ==
[2022-12-24] VITALS (9 sets, daily range): BP systolic 116–163; BP diastolic 65–84; PULSE 57–87; RESP 16–24; O2SAT 95–100; BMI 27.3
--- NOTE | 2022-12-24 07:10 | ECG_ITS ---
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 Measurements Intervals [place] Rate: 86 P: 70 CO: 152 QRS: 61 QRSD: 98 T: 47 QT: 370 QTc: 443 Interpretive Statements SINUS RHYTHM INCOMPLETE RIGHT BUNDLE BRANCH BLOCK [90+ ms QRS DURATION, TERMINAL R IN V1/V2, 40+ ms S IN I/aVL/V4/V5/V6] MODERATE ST DEPRESSION [0.05+ mV ST DEPRESSION] Compared to ECG 06/25/2018 12:55:52 Incomplete right bundle-branch block now present ST (T wave) deviation now present Short CO interval no longer present Electronically Signed On 12-24-2022 16:29:33 CDT by Chemo Landry M.D. [id number]
--- NOTE | 2022-12-24 07:10 | XRR_ITS ---
PROCEDURE INFORMATION: Exam: XR Chest Exam date and time: 12/24/2022 7:28 AM Age: 67 years old Clinical indication: Cough and dyspnea; Additional info: Dyspnea/cough TECHNIQUE: Imaging protocol: Radiologic exam of the chest. Views: 1 view. COMPARISON: CR XR chest 1V portable [id number] 06/29/2021 11:34 AM FINDINGS: Lungs: Overall coarsening or thickening of the interstitium diffusely. Stable left mid lung nodule which may reflect calcified granuloma. Pleural spaces: Unremarkable. No pleural effusion. No pneumothorax. Heart/Mediastinum: Unremarkable. No cardiomegaly. Vasculature: Calcified thoracic aorta. Bones/joints: Plate fixation of lower cervical spine. Degenerative change of the spine. XR/XR chest 1V portable [id number] IMPRESSION: Overall interstitial coarsening/thickening which may be on a chronic basis.
[2022-12-24] MEDS: aspirin 81 mg Chew Tablet 324 MG PO (07:16)
[2022-12-24 07:40] LABS: Basophils % 0.5 %; Eosinophils % 0.2 %; Hematocrit 43.3 % (37.0-47.0); Lymphocytes # 0.4 10^3/uL (0.8-4.8); Lymphocytes % 6.9 %; Mean Corpuscular HGB Conc 32.3 g/dL (30.0-36.0); Mean Corpuscular Hemoglobin 29.3 pg (28.0-34.0); Mean Corpuscular Volume 90.6 fl (81-99); Monocytes # 0.2 10^3/uL (0.2-0.9); Monocytes % 3.4 %; Neutrophils # 5.29 10^3/uL (1.8-7.7); Neutrophils % 88.7 %; Nucleated Red Blood Cells % 0 %; Platelet Count 141 10^3/cmm (130-400); Red Blood Count 4.78 10^6/uL (4.1-5.3); Red Cell Distribution Width 12.3 % (12.1-15.1)
[2022-12-24 07:40] LABS: ABG PCO2 41.2 mmHg (35-45); ABG PH Result 7.34 (7.35-7.45); Alveolar-Arterial Oxygen Gradi 4.6 mmHg (5-10); Arterial Blood Gas Hematocrit 44.6 % (37-47); Base Excess ABG -3.6 mmol/L (-2.0-2.0); Blood Gas Allen Test Pos; Blood Gas Operator Identificat WALCI; Blood Gas Sample Site Radial, right; Blood Gas Sample Type Arterial; Carboxyhemoglobin 1.5 %THgb (0.4-20.1); HCO3 ABG 22.1 mmol/L (22-26); HGB O2 Sat 90.2 % (95-100); Ionized Calcium Level - ABG 1.2 mmol/L (1.1-1.4); Methemoglobin 0.3 % (0.4-1.5); Oxygen Device NC; Oxygen Saturation ABG 91.9; PO2 ABG 63.9 mmHg (80.0-100.0); Potassium Level - ABG 3.4 mmol/L (3.5-5.0); Total Hemoglobin 14.6 g/dL (12-16)
--- NOTE | 2022-12-24 07:49 | W.ED.SOB ---
HPI - SOB/Dyspnea General: Chief Complaint: Shortness of Breath/Dyspnea Stated Complaint: Sob & Chest Pain Time Seen by Provider: 12/24/22 07:03 Source: patient Mode of arrival: ambulatory History of Present Illness: HPI Narrative: 67-year-old female presents emergency room complaining of shortness of breath. She also having paroxysmal coughing fits. She has a mildly productive cough she cannot characterize the sputum she denies fever. She is chronically on 2 to 3 L by nasal cannula for her COPD. She has some chest discomfort but its associated with her cough. She states she feels much better and her breathing is improved after receiving DuoNeb in route. Patient has no known history of coronary artery disease. MD elicited complaint: shortness of breath and cough Pertinent past history: COPD Onset (ago): day(s) Timing: intermittent Severity: mild Exacerbating factors: exertion and coughing Relieving factors: oxygen, rest and bronchodilators Known history of: COPD Associated symptoms: Reports chest congestion, chest pain and cough; Deny abdominal pain, diaphoresis, dizziness, extremity pain, fever(s), hemoptysis, lightheadedness, myalgias, nausea, palpitations, paresthesias, polydipsia, polyuria, rash, sense of impending doom, syncope, vomiting or other Treatment prior to arrival: oxygen and bronchodilator Related Data: Home oxygen amount: 3 liters Review of Systems Const: Reports: fatigue and malaise; Denies: fever(s), chills or diaphoresis Card: Reports: chest pain and dyspnea on exertion; Denies: palpitations, lightheadedness or syncope Resp: Reports: dyspnea, productive cough, wheezing and chest congestion; Denies: hemoptysis GI: Denies: abdominal pain, nausea or vomiting : Denies: flank pain, difficulty voiding, dysuria, urinary frequency or urinary urgency Musc: Denies: extremity pain Skin/Breast: Denies: rash or pruritus Neuro: Denies: dizziness Endo: Denies: polyuria or polydipsia PFS ED PFSH: Medical History Acute exacerbation of chronic obstructive airways disease Alcohol dependence, in remission Major depressive disorder, recurrent severe without psychotic features Nicotine dependence, cigarettes, with other nicotine-induced disorders Psychiatric care Social History (Reviewed 05/22/23 @ 07:51 by CORINNE Roman Smoking and tobacco status: current every day smoker cigarettes Packs smoked per day: 1 Years cigarettes smoked: 40 Quit status (tobacco): has tried quititng Number of times tried to quit tobacco: 10 Second hand smoke exposure: Yes Smoking risk assessment/counseling performed?: No Alcohol intake: former Desire information about alcohol rehabilitation?: No Counseling given: No Substance/Drug Use: former Desire information about substance/drug rehabilitation?: No Counseling given: No Physical Exam Const: ORIENTATION/CONSCIOUSNESS: Yes awake, Yes oriented to person, Yes oriented to place and Yes oriented to time HENMT: COMMON NORMALS: normocephalic, atraumatic and hearing grossly normal bilaterally HEAD & SCALP: normocephalic and atraumatic Resp: AUSCULTATION: rhonchi and wheezes Cardio: COMMON NORMALS: regular rate, regular rhythm and No murmurs present (Cardio) RATE: regular rate RHYTHM: regular rhythm GI: COMMON NORMALS: Soft to palpation and No hepatosplenomegaly present AUSCULTATION: Yes normoactive bowel sounds PALPATION: Yes Soft to palpation, No Tenderness to palpation present (GI), No Guarding due to palpation present (GI) and Yes No hepatosplenomegaly present Extremity: COMMON NORMALS: normal to inspection, capillary refill normal, no clubbing, cyanosis or edema, no calf tenderness and no pedal edema Neuro: SENSORIUM/ORIENTATION: Yes oriented to person, Yes oriented to place and Yes oriented to time Skin: COMMON NORMALS: no rashes or lesions noted GENERAL SKIN EXAM: no rashes or lesions noted Course Vital Signs: Vital signs: Vital Signs Pulse Rate 59 L 12/24/22 11:15 Respiratory Rate 18 12/24/22 11:15 Blood Pressure 130/69 12/24/22 11:15 Pulse Oximetry 97 12/24/22 11:15 Oxygen Delivery Me thod Nasal Cannula 12/24/22 11:00 Oxygen Flow Rate 3 12/24/22 11:00 MDM - SOB/Dyspnea Medical Decision Making Cardiac enzymes and EKG unremarkable patient no significant improvement after steroids and nebulizer. Will discharge home with steroid taper doxycycline regular use of albuterol and follow-up with primary care towards the end of the week return to the emergency room if has any worsening of symptoms or change in condition. Medical Records I reviewed the patient's medical records. Lab Data I reviewed the patient's lab results. 12/24/22 07:30 12/24/22 07:30 Labs/Radiology: Radiology Impressions Chest X-Ray 12/24/22 07:10 IMPRESSION: Overall interstitial coarsening/thickening which may be on a chronic basis. Laboratory Results WBC 6.0 10^3/uL (4.0-10.0) 12/24/22 07:30 RBC 4.78 10^6/uL (4.1-5.3) 12/24/22 07:30 Hgb 14.0 g/dL (11.5-15.3) 12/24/22 07:30 Hct 43.3 % (37.0-47.0) 12/24/22 07:30 MCV 90.6 fl (81-99) 12/24/22 07:30 MCH 29.3 pg (28.0-34.0) 12/24/22 07:30 MCHC 32.3 g/dL (30.0-36.0) 12/24/22 07:30 RDW 12.3 % (12.1-15.1) 12/24/22 07:30 Plt Count 141 10^3/cmm (130-400) 12/24/22 07:30 MPV 12.0 fL (7.4-10.4) H 12/24/22 07:30 Neut % (Auto) 88.7 % 12/24/22 07:30 Lymph % (Auto) 6.9 % 12/24/22 07:30 Leslie % (Auto) 3.4 % 12/24/22 07:30 Eos % (Auto) 0.2 % 12/24/22 07:30 Baso % (Auto) 0.5 % 12/24/22 07:30 Neut # (Auto) 5.29 10^3/uL (1.8-7.7) 12/24/22 07:30 Lymph # (Auto) 0.4 10^3/uL (0.8-4.8) L 12/24/22 07:30 Leslie # (Auto) 0.2 10^3/uL (0.2-0.9) 12/24/22 07:30 Eos # (Auto) 0.0 10^3/uL (0.0-0.8) 12/24/22 07:30 Baso # (Auto) 0.0 10^3/uL (0.0-0.1) 12/24/22 07:30 Nucleated RBC % (auto) 0 % 12/24/22 07:30 Nucleated RBCs # 0.0 /100WBC 12/24/22 07:30 Specimen Type Arterial 12/24/22 07:28 Sample Site Radial, right 12/24/22 07:28 ABG pH 7.34 (7.35-7.45) L 12/24/22 07:28 ABG pCO2 41.2 mmHg (35-45) 12/24/22 07:28 ABG pO2 63.9 mmHg (80.0-100.0) L 12/24/22 07:28 ABG HCO3 22.1 mmol/L (22-26) 12/24/22 07:28 ABG O2 Saturation 91.9 12/24/22 07:28 ABG Base Excess -3.6 mmol/L (-2.0-2.0) L 12/24/22 07:28 Sedrick Test Pos 12/24/22 07:28 A-a O2 Gradient 4.6 mmHg (5-10) L 12/24/22 07:28 Hematocrit 44.6 % (37-47) 12/24/22 07:28 Hgb O2 Saturation 90.2 % (95-100) L 12/24/22 07:28 Carboxyhemoglobin 1.5 %THgb (0.4-20.1) 12/24/22 07:28 Methemoglobin 0.3 % (0.4-1.5) L 12/24/22 07:28 Total Hemoglobin 14.6 g/dL (12-16) 12/24/22 07:28 Sodium 139.0 mmol/L (131-143) 12/24/22 07:28 Potassium 3.4 mmol/L (3.5-5.0) L 12/24/22 07:28 Glucose 115.0 mg/dL (70-115) 12/24/22 07:28 Ionized Calcium 1.2 mmol/L (1.1-1.4) 12/24/22 07:28 O2 Delivery Device Nc 12/24/22 07:28 O2 Liters/Min 3.0 % 12/24/22 07:28 Home Care Companion ID Walci 12/24/22 07:28 Sodium 138 mmol/L (136-145) 12/24/22 07:30 Potassium 3.5 mmol/L (3.5-5.1) 12/24/22 07:30 Chloride 103 mmol/L (98-107) 12/24/22 07:30 Carbon Dioxide 19 mmol/L (22-29) L 12/24/22 07:30 Anion Gap 19.5 (5-19) H 12/24/22 07:30 BUN 10 mg/dL (8-23) 12/24/22 07:30 Creatinine 0.5 mg/dL (0.5-0.9) 12/24/22 07:30 GFR Calculation 123.1 mL/min (90-130) 12/24/22 07:30 Glucose 111 mg/dL (65-115) 12/24/22 07:30 Calculated Osmolality 286 mOsm/kg (285-295) 12/24/22 07:30 Calcium 8.8 mg/dL (8.5-10.5) 12/24/22 07:30 Total Bilirubin 0.3 mg/dL (0.15-1.2) 12/24/22 07:30 AST 19 U/L (0-32) 12/24/22 07:30 ALT 8 U/L (0-33) 12/24/22 07:30 Alkaline Phosphatase 63 U/L (35-105) 12/24/22 07:30 Troponin T Baseline 19 ng/L (0-10) H 12/24/22 07:30 Troponin T 120 Minute 18.76 ng/L (0-10) H 12/24/22 09:00 Delta Troponin T -0.24 ABS# (0-10) L 12/24/22 09:00 Total Protein 7.3 g/dL (6.6-8.7) 12/24/22 07:30 Albumin 4.1 g/dL (3.5-5.2) 12/24/22 07:30 Globulin 3.2 g/dL (1.3-4.6) 12/24/22 07:30 Discharge Plan Discharge Patient Disposition: Home Clinical Impression: Acute exacerbation of chronic obstructive airways disease Condition: Stable Prescriptions: New doxycycline hyclate 100 mg capsule 100 mg PO BID 10 Days Qty: 20 0RF Medrol (Leobardo) 4 mg tablets,dose pack See Rx Instructions .ROUTE .COMPLEX Qty: 21 0RF Rx Instructions: orally per package directions No Action clonazepam 0.5 mg tablet 0.5 mg PO BID PRN (Reason: Anxiety) pravastatin 80 mg tablet 80 mg PO DAILY pregabalin 50 mg capsule 50 mg PO Q12H tramadol 50 mg tablet 50 mg PO QID PRN (Reason: Pain) metoprolol tartrate 50 mg tablet 50 mg PO BID gemfibrozil 600 mg tablet 600 mg PO BID hydralazine 25 mg tablet 25 mg PO BID lisinopril 20 mg tablet 20 mg PO QAM levothyroxine 50 mcg tablet 50 mcg PO QAM Ventolin HFA 90 mcg/actuation Hfa Aerosol Inhaler 2 puff INHALATION QID PRN (Reason: Shortness Of Breath) trazodone 100 mg tablet 200 mg PO BEDTIME Lexapro 20 mg tablet 20 mg PO QAM Discharge Orders: Discharge ED (Routine); Ordered 12/24/22 Ordered By: Ronni Lake Referrals: Jenny Roman DO [Primary Care Provider] - Discharge Diet: Usual diet Discharge Activity: Increase activity as tolerated Patient Instructions: Opioid Safety, Pain Management Activity Restrictions/Additional Instructions: You are seen today for exacerbation of your COPD which improved with steroids and nebulizers in the emergency room. Continue to use the albuterol regularly throughout the day also placed on a steroid taper and a course of oral doxycycline. Follow-up with your doctor towards the end of the week return if you have further problems or worsening symptoms. Coding Level of Care Code ED Medical Terminologist for Nia Day
[2022-12-24] MEDS: dexamethasone 10 mg/mL INJ IVP (07:54)
[2022-12-24 08:04] LABS: Troponin(5th) Baseline 19 ng/L (0-10)
[2022-12-24 08:09] LABS: Alanine Aminotransferase 8 U/L (0-33); Albumin Level 4.1 g/dL (3.5-5.2); Alkaline Phosphatase 63 U/L (35-105); Aspartate Amino Transferase 19 U/L (0-32); Blood Urea Nitrogen 10 mg/dL (8-23); Calcium 8.8 mg/dL (8.5-10.5); Carbon Dioxide 19 mmol/L (22-29); Chloride 103 mmol/L (98-107); Creatinine Clr Calc Pharmacy 59.2366; Globulin 3.2 g/dL (1.3-4.6); Glomerular Filtration Rate 123.1 mL/min (90-130); Glucose 111 mg/dL (65-115); Osmolality Calculated 286 mOsm/kg (285-295); Sodium 138 mmol/L (136-145); Total Bilirubin 0.3 mg/dL (0.15-1.2); Total Protein 7.3 g/dL (6.6-8.7)
[2022-12-24 08:22] LABS: Anion Gap 19.5 (5-19); Potassium 3.5 mmol/L (3.5-5.1)
[2022-12-24] MEDS: ipratropium-albuterol 3 mL Neb INHALATION (08:35)
--- NOTE | 2022-12-24 09:10 | ECG_ITS ---
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 Measurements Intervals [place] Rate: 58 P: 131 MO: 157 QRS: 55 QRSD: 98 T: 62 QT: 431 QTc: 426 Interpretive Statements SINUS BRADYCARDIA INCOMPLETE RIGHT BUNDLE BRANCH BLOCK [90+ ms QRS DURATION, TERMINAL R IN V1/V2, 40+ ms S IN I/aVL/V4/V5/V6] Compared to ECG 12/24/2022 07:21:13 Sinus rhythm no longer present ST (T wave) deviation no longer present Electronically Signed On 12-24-2022 16:35:52 CDT by Chemo Landry M.D. [id number]
[2022-12-24 09:52] LABS: Troponin 5 2HR 18.76 ng/L (0-10)
[2022-12-24 09:54] LABS: Troponin 5 2HR Delta -0.24 ABS# (0-10)
== END 2022-12-24 11:18 | disposition home or self-care (01) ==
PROVIDERS: Emergency Provider Family Medicine; PCP Family Medicine
DX: J44.1 Chronic obstructive pulmonary disease with (acute) exacerbation (principal); F17.210 Nicotine dependence, cigarettes, uncomplicated
CPT/HCPCS: 36415; 36600; 71045; 80051; 80053; 82330; 82805; 84484; 85025; 93005; 94640; 96374; 99285; J1100

== ENCOUNTER 2023-10-07 14:55 | Outpatient (CLI) | payer MEDICARE, MEDICAID, SELFPAY ==
--- NOTE | 2023-10-07 15:01 | MM_ITS ---
WS: [id number] BILATERAL 3D TOMOSYNTHESIS DIGITAL SCREENING MAMMOGRAPHY WITH CAD CLINICAL INFORMATION: SCREENING HISTORY: Screening mammogram. No current complaints. COMPARISON: 2020 TECHNIQUE: Bilateral CC and MLO views. FINDINGS: The breasts are composed of heterogeneous fibroglandular density tissue, which can limit the detectio n of small underlying mass lesions. Increasing asymmetric density posterior depth LEFT breast best se en on the MLO view. Recommend LEFT breast diagnostic mammography and ultrasound if persistent. RIGHT breast is unremarkable and unchanged. Vascular calcification. A few incidental punctate calcifications. IMPRESSION: MM/[place] [id number] BI-RADS: 0-Incomplete: Need additional imaging evaluation FOLLOW UP: Need Additional Imaging Recommend LEFT breast diagnostic mammography and ultrasound if persistent.
== END 2023-10-07 14:56 | disposition home or self-care (01) ==
LOC: RAD 14:55
PROVIDERS: PCP Family Medicine; Visit Provider Family Medicine
DX: Z12.31 Encounter for screening mammogram for malignant neoplasm of breast (principal); R92.323 Mammographic fibroglandular density, bilateral breasts
CPT/HCPCS: 77063; 77067

== ENCOUNTER 2025-03-16 22:49 | Emergency (ER) | payer OTHER, MEDICAID, SELFPAY ==
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
--- NOTE | 2025-03-16 22:57 | XRR_ITS ---
PROCEDURE INFORMATION: Exam: XR Chest Exam date and time: 03/16/2025 11:13 PM Age: 69 years old Clinical indication: Pain; Chest pressure; Additional info: Chest pain left side, HX of copd TECHNIQUE: Imaging protocol: Radiologic exam of the chest. Views: 1 view. COMPARISON: CR XR chest 1V portable [id number] 12/24/2022 7:28 AM FINDINGS: Lungs: There is a calcified granuloma in the left mid lung zone. Pleural spaces: Unremarkable. No pleural effusion. No pneumothorax. Heart/Mediastinum: Cardiomediastinal contour is stable Bones/joints: Patient is status post cervical spine fusion XR/XR chest 1V portable [id number] IMPRESSION: No acute cardiopulmonary process demonstrated
[2025-03-16 22:59] VITALS: BP 118/69; PULSE 51; RESP 20; TEMP 36.7; O2SAT 97
--- NOTE | 2025-03-16 23:07 | ECG_ITS ---
[facility] Date: 2025-03-16 Pat Name: Lindy Farfan Department: Room: Gender: Female Signals Analyst: : 1955 Requested By: Gladys Linares Order Number: [id number] Azalea MD: Jay Diego M.D. Measurements Intervals [place] Rate: 50 P: 53 CA: 143 QRS: 0 QRSD: 89 T: 43 QT: 455 QTc: 418 Interpretive Statements SINUS BRADYCARDIA Compared to ECG 12/24/2022 09:15:14 No significant change Electronically Signed On 03-17-2025 21:17:18 CDT by Jay Diego M.D. [email or web address]
[2025-03-17 00:13] LABS: Respiratory Syncytial Virus Ce NEGATIVE (Negative); SARS-CoV-2 PCR NEGATIVE (Negative)
[2025-03-17 00:19] LABS: Hematocrit 51.6 % (36-47); Hemoglobin 17.40 g/dL (11.27-16.99); Mean Corpuscular HGB Conc 33.7 g/dL (30-55); Mean Corpuscular Hemoglobin 29.2 pg (27-33); Mean Corpuscular Volume 86.7 fl (85-98); Nucleated Red Blood Cells % 0 %; Platelet Count 213 10^3/cmm (157-399); Red Blood Count 5.95 10^6/uL (3.85-5.65); White Blood Count 11.11 10^3/uL (3.29-11.43)
[2025-03-17 00:37] LABS: Troponin(5th) Baseline 17 ng/L (0-10)
[2025-03-17 00:41] LABS: Alanine Aminotransferase 7 U/L (0-33); Albumin Level 4.7 g/dL (3.5-5.2); Alkaline Phosphatase 88 U/L (35-105); Anion Gap 20.4 (5-19); Aspartate Amino Transferase 18 U/L (0-32); Blood Urea Nitrogen 20 mg/dL (8-23); Calcium 10.2 mg/dL (8.5-10.5); Carbon Dioxide 27 mmol/L (22-29); Chloride 89 mmol/L (98-107); Creatinine Clr Calc Pharmacy 42.5922; Globulin 3.0 g/dL (1.3-4.6); Glucose 129 mg/dL (65-115); Lipase 22 U/L (13-60); Osmolality Calculated 280 mOsm/kg (285-295); Potassium 3.4 mmol/L (3.5-5.1); Sodium 133 mmol/L (136-145); Total Protein 7.7 g/dL (6.6-8.7)
[2025-03-17 00:41] LABS: Lactic Sepsis W/Reflex 1.6 mmol/L (0.5-2.2)
--- NOTE | 2025-03-17 01:39 | W.ED.SOB ---
HPI - SOB/Dyspnea General: Chief Complaint: Shortness of Breath/Dyspnea Stated Complaint: Vomiting\Fever\Chest Hurting Time Seen by Provider: 03/17/25 01:36 History of Present Illness: HPI Narrative: 69-year-old female with a history of COPD, chronic hypoxemic respiratory failure on 4 L nasal cannula at all times who presents to the emergency room with shortness of breath. Says she has had worsening cough that is productive of sputum. She has had some nausea and vomiting. No known fevers. She has had some right sided pleuritic chest pain. No increased oxygen requirements. No altered mental status. No focal motor deficits. Related Data Home Medications ?Medication ?Instructions ?Recorded ?Confirmed clonazepam 0.5 mg tablet 0.5 mg PO BID PRN Anxiety 10/21/19 12/24/22 gemfibrozil 600 mg tablet 600 mg PO BID 10/21/19 12/24/22 hydralazine 25 mg tablet 25 mg PO BID 10/21/19 12/24/22 metoprolol tartrate 50 mg tablet 50 mg PO BID 10/21/19 12/24/22 pravastatin 80 mg tablet 80 mg PO DAILY 10/21/19 12/24/22 pregabalin 50 mg capsule 50 mg PO Q12H 10/21/19 12/24/22 tramadol 50 mg tablet 50 mg PO QID PRN Pain 10/21/19 12/24/22 lisinopril 20 mg tablet 20 mg PO QAM 03/14/22 12/24/22 albuterol sulfate 90 mcg/actuation 2 puff inhalation QID PRN 12/24/22 12/24/22 aerosol inhaler (Ventolin HFA) Shortness Of Breath escitalopram oxalate 20 mg tablet 20 mg PO QAM 12/24/22 12/24/22 (Lexapro) levothyroxine 50 mcg tablet 50 mcg PO QAM 12/24/22 12/24/22 trazodone 100 mg tablet 200 mg PO BEDTIME 12/24/22 12/24/22 Previous Rx's ?Medication ?Instructions ?Recorded methylprednisolone 4 mg tablets in See Rx Instructions PO .COMPLEX 12/24/22 a dose pack (Medrol (Leobardo)) #21 ea doxycycline hyclate 100 mg capsule 100 mg PO BID 7 days #14 caps 03/17/25 ondansetron 4 mg disintegrating 4 mg PO Q8H PRN nausea and 03/17/25 tablet vomiting #10 tabs prednisone 20 mg tablet 60 mg (3 x 20 mg) PO DAILY 5 days 03/17/25 #15 tabs Allergies Allergy/AdvReac Type Severity Reaction Status Date / Time alprazolam (From Xanax) Allergy unknown Verified 03/16/25 23:03 aripiprazole (From Abilify) Allergy unknown Verified 03/16/25 23:03 fentanyl Allergy unknown Verified 03/16/25 23:03 morphine Allergy unknown Verified 03/16/25 23:03 quetiapine (From Seroquel) Allergy unknown Verified 03/16/25 23:03 sertraline (From Zoloft) Allergy unknown Verified 03/16/25 23:03 Review of Systems Narrative: Constitutional symptoms: Negative except as documented in HPI. Skin symptoms: Negative except as documented in HPI. Eye symptoms: Negative except as documented in HPI. ENMT symptoms: Negative except as documented in HPI. Respiratory symptoms: Negative except as documented in HPI. Cardiovascular symptoms: Negative except as documented in HPI. Gastrointestinal symptoms: Negative except as documented in HPI. Genitourinary symptoms: Negative except as documented in HPI. Musculoskeletal symptoms: Negative except as documented in HPI. Neurologic symptoms: Negative except as documented in HPI. Psychiatric symptoms: Negative except as documented in HPI. Endocrine symptoms: Negative except as documented in HPI. PFSH ED PFSH: Medical History (Updated 03/17/25 @ 01:50 by Gladys Schwartz MD) Acute exacerbation of chronic obstructive airways disease Nicotine dependence, cigarettes, with other nicotine-induced disorders Alcohol dependence, in remission Major depressive disorder, recurrent severe without psychotic features Social History Smoking and tobacco/nicotine status: current every day tobacco/nicotine user cigarettes Packs smoked per day: 1 Years cigarettes smoked: 40 Quit status (tobacco/nicotine): has tried quititng Number of times tried to quit tobacco: 10 Second hand smoke exposure: Yes Alcohol intake: former Substance/Drug Use: former Physical Exam Narrative: EXAM NARRATIVE: General: Alert, no acute distress. Skin: Warm, dry. Head: Normocephalic, atraumatic. Neck: Supple, trachea midline. Eye: Extraocular movements are intact. Ears, nose, mouth and throat: Oral mucosa moist. Cardiovascular: Regular rate and rhythm, Normal peripheral perfusion. Respiratory: coarse, scattered wheeze, mild increased wob. tachypnea, breath sounds are equal, Symmetrical chest wall expansion. Gastrointestinal: Soft, Nontender, Non distended Musculoskeletal: Normal ROM, no deformity. Neurological: Alert and oriented, No focal neurological deficit observed. Psychiatric: Cooperative, appropriate mood & affect. Course Vital Signs: Vital signs: Vital Signs Temperature 98.1 F 03/16/25 22:59 Pulse Rate 53 L 03/17/25 01:54 Respiratory Rate 20 H 03/16/25 22:59 Blood Pressure 102/55 03/17/25 01:54 Pulse Oximetry 98 03/17/25 01:54 Oxygen Delivery Me thod Nasal Cannula 03/17/25 01:54 Oxygen Flow Rate 4 03/17/25 01:54 MDM - SOB/Dyspnea Medical Decision Making Differential diagnosis for patient with shortness of breath includes but is not limited to and based on the above HPI, review of systems and physical exam: Pneumonia. Bronchitis. Asthma or COPD with acute exacerbation. Acute coronary syndrome / [place]. Pulmonary embolism. Anxiety. Congestive heart failure. Viral infections including influenza and Covid-19. Atrial fibrillation. Anxiety. Pleural effusion. Pneumothorax. Orders placed to evaluate differential diagnosis based on the above differential, HPI and physical exam Chest x-ray: No acute process. No infiltrate. No pneumothorax. This was reviewed and interpreted by myself the emergency room physician. I also reviewed the radiology report. Lab Review: Laboratory results were reviewed and interpreted by myself the emergency room physician. No leukocytosis. Stable polycythemia. No renal failure. Flu COVID and RSV are negative. Serial cardiac markers around 17 and unchanged I reviewed the patient's medical record. 69-year-old female with a history of COPD, chronic hypoxemic respiratory failure on 4 L nasal cannula at all times Reexamination: Patient remained stable. Work of breathing improved slightly with breathing treatments. No altered mental status. No focal motor deficits. Assessment and plan: COPD with acute exacerbation Chronic hypoxemic respiratory failure Dehydration ?IV doxycycline, IV Solu-Medrol, IV Zofran, 2 updrafts.500 mL liter normal saline bolus - Discharged home - Discussed plan with patient. Answered any questions. - Evaluation and treatment of this problem were appropriate in the emergency setting. Lab Data 03/17/25 00:00 03/16/25 23:54 Labs/Radiology: Radiology Impressions Chest X-Ray 03/16/25 22:57 IMPRESSION: No acute cardiopulmonary process demonstrated Laboratory Results WBC 11.11 10^3/uL (3.29-11.43) 03/17/25 00:00 RBC 5.95 10^6/uL (3.85-5.65) H 03/17/25 00:00 Hgb 17.40 g/dL (11.27-16.99) H 03/17/25 00:00 Hct 51.6 % (36-47) H 03/17/25 00:00 MCV 86.7 fl (85-98) 03/17/25 00:00 MCH 29.2 pg (27-33) 03/17/25 00:00 MCHC 33.7 g/dL (30-55) 03/17/25 00:00 RDW 12.4 % (12.1-15.1) 03/17/25 00:00 Plt Count 213 10^3/cmm (157-399) 03/17/25 00:00 MPV 11.4 fL (7.4-10.4) H 03/17/25 00:00 Neut % (Auto) 67.0 % 03/17/25 00:00 Lymph % (Auto) 25.5 % 03/17/25 00:00 [place] % (Auto) 6.6 % 03/17/25 00:00 Eos % (Auto) 0.3 % 03/17/25 00:00 Baso % (Auto) 0.2 % 03/17/25 00:00 Neut # (Auto) 7.46 10^3/uL (1.8-7.7) 03/17/25 00:00 Lymph # (Auto) 2.8 10^3/uL (0.8-4.8) 03/17/25 00:00 [place] # (Auto) 0.7 10^3/uL (0.2-0.9) 03/17/25 00:00 Eos # (Auto) 0.0 10^3/uL (0.0-0.8) 03/17/25 00:00 Baso # (Auto) 0.0 10^3/uL (0.0-0.1) 03/17/25 00:00 Nucleated RBC % (auto) 0 % 03/17/25 00:00 Nucleated RBCs # 0.0 /100WBC 03/17/25 00:00 Specimen Type Arterial 03/17/25 02:01 Sample Site Radial, right 03/17/25 02:01 ABG pH 7.45 (7.35-7.45) 03/17/25 02:01 ABG pCO2 42.1 mmHg (35-45) 03/17/25 02:01 ABG pO2 123.0 mmHg (80.0-100.0) H 03/17/25 02:01 ABG PO2/FiO2 Ratio 341 03/17/25 02:01 ABG HCO3 29.2 mmol/L (22-26) H 03/17/25 02:01 ABG O2 Saturation 99.0 03/17/25 02:01 ABG Base Excess 4.5 mmol/L (-2.0-2.0) H 03/17/25 02:01 Sedrick Test Pos 03/17/25 02:01 A-a O2 Gradient 10.4 mmHg (5-10) H 03/17/25 02:01 Hematocrit 49.4 % (37-47) H 03/17/25 02:01 Hgb O2 Saturation 95.1 % (95-100) 03/17/25 02:01 Carboxyhemoglobin 3.0 %THgb (0.4-20.1) 03/17/25 02:01 Methemoglobin 0.9 % (0.4-1.5) 03/17/25 02:01 Total Hemoglobin 16.1 g/dL (12-16) H 03/17/25 02:01 Sodium 133.0 mmol/L (131-143) 03/17/25 02:01 Potassium 3.1 mmol/L (3.5-5.0) L 03/17/25 02:01 Glucose 120.0 mg/dL (70-115) H 03/17/25 02:01 Ionized Calcium 1.2 mmol/L (1.1-1.4) 03/17/25 02:01 O2 Delivery Device Nc 03/17/25 02:01 O2 Liters/Min 4.0 % 03/17/25 02:01 FiO2 36.0 % 03/17/25 02:01 Head Well Puller ID [email or web address] 03/17/25 02:01 Sodium 133 mmol/L (136-145) L 03/16/25 23:54 Potassium 3.4 mmol/L (3.5-5.1) L 03/16/25 23:54 Chloride 89 mmol/L (98-107) L 03/16/25 23:54 Carbon Dioxide 27 mmol/L (22-29) 03/16/25 23:54 Anion Gap 20.4 (5-19) H 03/16/25 23:54 BUN 20 mg/dL (8-23) 03/16/25 23:54 Creatinine 1.1 mg/dL (0.5-0.9) H 03/16/25 23:54 GFR Calculation 49.2 mL/min (90-130) L 03/16/25 23:54 Glucose 129 mg/dL (65-115) H 03/16/25 23:54 Calculated Osmolality 280 mOsm/kg (285-295) L 03/16/25 23:54 Lactic Acid 1.6 mmol/L (0.5-2.2) 03/17/25 00:00 Calcium 10.2 mg/dL (8.5-10.5) 03/16/25 23:54 Total Bilirubin 0.5 mg/dL (0.15-1.2) 03/16/25 23:54 AST 18 U/L (0-32) 03/16/25 23:54 ALT 7 U/L (0-33) 03/16/25 23:54 Alkaline Phosphatase 88 U/L (35-105) 03/16/25 23:54 Troponin T Baseline 17 ng/L (0-10) H 03/17/25 00:00 Total Protein 7.7 g/dL (6.6-8.7) 03/16/25 23:54 Albumin 4.7 g/dL (3.5-5.2) 03/16/25 23:54 Globulin 3.0 g/dL (1.3-4.6) 03/16/25 23:54 Lipase 22 U/L (13-60) 03/16/25 23:54 Influenza A (PCR) Negative (Negative) 03/16/25 23:09 Influenza Type B (PCR) Negative (Negative) 03/16/25 23:09 RSV (PCR) Negative (Negative) 03/16/25 23:09 SARS-CoV-2 (PCR) Negative (Negative) 03/16/25 23:09 All radiology interpretation(s) finalized by discharge Discharge Plan Discharge Patient Disposition: Home Clinical Impression: Acute exacerbation of chronic obstructive airways disease, Chronic hypoxemic respiratory failure, Dehydration Condition: Stable Prescriptions: New doxycycline hyclate 100 mg capsule 100 mg PO BID 7 Days Qty: 14 0RF prednisone 20 mg tablet 60 mg PO DAILY 5 Days Qty: 15 0RF ondansetron 4 mg tablet,disintegrating 4 mg PO Q8H PRN (Reason: nausea and vomiting) Qty: 10 0RF No Action clonazepam 0.5 mg tablet 0.5 mg PO BID PRN (Reason: Anxiety) pravastatin 80 mg tablet 80 mg PO DAILY pregabalin 50 mg capsule 50 mg PO Q12H tramadol 50 mg tablet 50 mg PO QID PRN (Reason: Pain) metoprolol tartrate 50 mg tablet 50 mg PO BID gemfibrozil 600 mg tablet 600 mg PO BID hydralazine 25 mg tablet 25 mg PO BID lisinopril 20 mg tablet 20 mg PO QAM levothyroxine 50 mcg tablet 50 mcg PO QAM Ventolin HFA 90 mcg/actuation Hfa Aerosol Inhaler 2 puff INHALATION QID PRN (Reason: Shortness Of Breath) trazodone 100 mg tablet 200 mg PO BEDTIME Lexapro 20 mg tablet 20 mg PO QAM Medrol (Leobardo) 4 mg tablets,dose pack See Rx Instructions .ROUTE .COMPLEX Qty: 21 0RF Rx Instructions: orally per package directions Discharge Orders: Discharge ED (Routine); Ordered 03/17/25 Ordered By: Gladys Schwartz Referrals: Jenny Roman DO [Primary Care Provider, Family Practice] Discharge Diet: Usual diet Discharge Activity: Increase activity as tolerated Patient Instructions: COPD (Chronic Obstructive Pulmonary Disease) (ED), Opioid Safety, Pain Management, Patient Portal & Soha Instructions Activity Restrictions/Additional Instructions: Thank you for choosing [facility] for your healthcare needs today. You have been screened and evaluated and felt safe for discharge. Health conditions do change or evolve sometimes and as such it is important that you follow up with your Primary Doctor to be re checked, 3-5 days is a general good time frame for follow up. 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
[2025-03-17 01:54] VITALS: BP 102/55; PULSE 53; O2SAT 98
[2025-03-17 02:00] VITALS: PULSE 49; RESP 16; O2SAT 99
[2025-03-17 02:12] LABS: ABG PCO2 42.1 mmHg (35-45); ABG PH Result 7.45 (7.35-7.45); Alveolar-Arterial Oxygen Gradi 10.4 mmHg (5-10); Arterial Blood Gas Hematocrit 49.4 % (37-47); Blood Gas Allen Test Pos; Blood Gas Operator Identificat gerca; Blood Gas Sample Site Radial, right; Blood Gas Sample Type Arterial; Carboxyhemoglobin 3.0 %THgb (0.4-20.1); Glucose Level-ABG 120.0 mg/dL (70-115); HCO3 ABG 29.2 mmol/L (22-26); Ionized Calcium Level - ABG 1.2 mmol/L (1.1-1.4); Methemoglobin 0.9 % (0.4-1.5); Oxygen Saturation ABG 99.0; PO2 ABG 123.0 mmHg (80.0-100.0); PO2 FiO2 Ratio Arterial Blood 341; Potassium Level - ABG 3.1 mmol/L (3.5-5.0); Sodium Level - ABG 133.0 mmol/L (131-143)
[2025-03-17 02:13] LABS: Blood Gas LPM 4.0 %
[2025-03-17 02:16] VITALS: PULSE 49; RESP 16; O2SAT 99
[2025-03-17] MEDS: doxycycline 100 MG in sodium chloride 0.9% (plus) 100 ML IV (02:16)
[2025-03-17] MEDS: ondansetron 2 mg/ML SDV 2 mL 4 MG IVP (02:17)
[2025-03-17] MEDS: methylPREDNISolone sod succ 125 mg/2 mL INJ IVP (02:17)
[2025-03-17 02:42] VITALS: BP 134/57; PULSE 54; O2SAT 96
[2025-03-17 02:43] LABS: Troponin 5 2HR 18.35 ng/L (0-10); Troponin 5 2HR Delta 1.35 ABS# (0-10)
--- OUTSIDE RECORDS SUMMARY | 2025-03-17 18:32 | XMS_ITS | Clinical Summary ---
Author Organization [facility] Address [address] [place] [address] Phone Care Team Providers Care Water Resource Specialist Name Role Phone Jenny Roman Primary Care Provider Allergies Active Allergy Reactions Criticality Noted Date Comments Alprazolam Other (See Comments) 11/05/2016 out of control hyper Aripiprazole Hallucination Low 05/25/2012 Fentanyl Delirium Medium 11/05/2016 [place] Other (See Comments) 12/27/2017 Very hyper as if on steroids. Morphine Nausea and Vomiting Low 10/10/2015 Quetiapine Anxiety Low 10/10/2015 Sertraline Anaphylaxis High 05/25/2012 Medications oxygen home deliveryIndicatio ns:Chronic obstructive pulmonary disease, unspecified COPD type (CMS/HCC),Dyspnea on exertion,Chronic obstructive pulmonary disease with hypoxia (CMS/HCC) Home Oxygen Concentrator yes at 4 L/M Rest, 4 L/M Activity, 4 L/M Sleep, Delivery Device: Nasal Cannula Portability: yes, 4L/M Rest, 4 L/M Activity, May provide device best for patient needs(E system,home fill, conserving device) Length of Need: 99 months 1 Each 022 Active budesonide-glycop yr-formoterol (Breztri Aerosphere) 160-9-4.8 mcg/actuation HFA Aerosol InhalerIndication s:Chronic obstructive pulmonary disease with hypoxia (CMS/HCC),Chronic respiratory failure with hypoxia and hypercapnia (CMS/HCC),Dyspnea on exertion,Chronic respiratory failure with hypoxia, on home O2 therapy (CMS/HCC),Depende nce on continuous supplemental oxygen Take 2 Puffs by inhalation 2 times daily. 10.7 Gram 6 023 Active nebulizerIndicati ons:Dyspnea on exertion,Chronic respiratory failure with hypoxia and hypercapnia (CMS/HCC),Depende nce on continuous supplemental oxygen,Chronic obstructive pulmonary disease with hypoxia (CMS/HCC),Chronic respiratory failure with hypoxia, on home O2 therapy (CMS/HCC) Length of need 99 months Nebulizer with compressor, Kit: Disposable Nebulizer Kit, 2 per month, filters , areosol mask: Yes. Name of Medication - Albuterol 1 Each 023 Active nicotine (NICODERM CQ) 21 mg/24 hr patch APPLY ONE PATCH TO SKIN DIRECTED EVERY 24 HOURS 30 Patch 2 024 Active Additional Information Patient not taking.Reported on 09/09/2024 hydrALAZINE (APRESOLINE) 25 mg tabletIndications :Essential hypertension TAKE ONE TABLET BY MOUTH TWICE DAILY @ 9AM & 5PM 180 Tablet 3 024 Active levothyroxine 50 mcg tabletIndications :Hypothyroidism due to acquired atrophy of thyroid TAKE 1 TABLET BY MOUTH EVERY DAY at 8am 90 Tablet 4 025 Active traZODone (DESYREL) 150 mg tablet Take 1 Tablet (150 mg) by mouth daily at bedtime. 90 Tablet 4 025 Active pregabalin (LYRICA) 50 mg CapsuleIndication s:Chronic neck pain take 1 capsule BY MOUTH EVERY TWELVE HOURS 180 Capsule 3 025 Active pravastatin (PRAVACHOL) 80 mg tabletIndications :Mixed hyperlipidemia Take 1 Tablet (80 mg) by mouth daily. *NEEDS LABS* 90 Tablet 4 025 Active lisinopriL (PRINIVIL) 20 mg tabletIndications :Essential hypertension TAKE 1 TABLET BY MOUTH EVERY DAY 100 Tablet 3 025 Active escitalopram oxalate (LEXAPRO) 20 mg tabletIndications :MADHU (generalized anxiety disorder) TAKE 1 TABLET BY MOUTH EVERY DAY AT 9AM 90 Tablet 4 025 Active gemfibroziL (LOPID) 600 mg tabletIndications :Mixed hyperlipidemia TAKE 1 TABLET BY MOUTH TWICE DAILY 180 Tablet 4 025 Active clonazePAM (KlonoPIN) 0.5 mg TabletIndications :MADHU (generalized anxiety disorder) Take 1 Tablet (0.5 mg) by mouth 2 times daily as needed for Anxiety. 60 Tablet 2 025 Active albuterol (PROVENTIL,VENTOL IN) 2.5 mg /3 mL (0.083 %) Solution for NebulizationIndic ations:Chronic obstructive pulmonary disease with hypoxia (CMS/HCC),Chronic respiratory failure with hypoxia and hypercapnia (CMS/HCC),Dyspnea on exertion,Chronic respiratory failure with hypoxia, on home O2 therapy (CMS/HCC),Depende nce on continuous supplemental oxygen Take 3 mL (2.5 mg) by inhalation every 6 hours as needed for Shortness of Breath. 100 Each 3 025 Active albuterol sulfate HFA 90 mcg/actuation aerosol inhalerIndication s:Chronic obstructive pulmonary disease with hypoxia (CMS/HCC),Chronic respiratory failure with hypoxia and hypercapnia (CMS/HCC) Take 2 Puffs by inhalation every 6 hours as needed for Shortness of Breath or Wheezing. 8.5 Gram 6 025 Active traMADol (ULTRAM) 50 mg tabletIndications :Chronic neck pain TAKE 1 TABLET BY MOUTH FIVE TIMES A DAY NEEDED FOR PAIN 150 Tablet 2 025 Active albuterol sulfate HFA 90 mcg/actuation aerosol inhalerIndication s:Chronic obstructive pulmonary disease with hypoxia (CMS/HCC),Chronic respiratory failure with hypoxia and hypercapnia (CMS/HCC),Dyspnea on exertion,Chronic respiratory failure with hypoxia, on home O2 therapy (CMS/[facility]),Depende nce on continuous supplemental oxygen Take 2 Puffs by inhalation every 6 hours as needed for Shortness of Breath or Wheezing. 8.5 Gram 6 023 2024 Discontinued metoprolol tartrate (LOPRESSOR) 25 mg tablet Take 1 Tablet (25 mg) by mouth 2 times daily. 180 Tablet 4 024 2024 Discontinued traMADol (ULTRAM) 50 mg tabletIndications :Chronic neck pain TAKE 1 TABLET BY MOUTH FIVE TIMES A DAY NEEDED FOR PAIN 150 Tablet 2 025 2024 Discontinued(R eorder) Active Problems Problem Noted Date Diagnosed Date Cigarette smoker 03/16/2025 Nicotine dependence, cigaret charlie, with other nicotine-induced disorders 05/06/2024 Major depressive disorder, r ecurrent severe without psychotic features 05/06/2024 Hypomagnesemia 05/06/2024 Declined influenza vaccine 05/06/2024 Generalized muscle weakness 09/30/2023 Frail elderly 09/30/2023 Chronic respiratory failure with hypoxia and hyp ercapnia 07/21/2022 Chronic obstructive pulmonary disease 10/05/2021 Chronic obstructive pulmonary disease with hypox ia 10/05/2021 Atherosclerosis of aorta 12/26/2020 Overview (01/18/2021): Added per 12.19.2020 PVQ Primary insomnia 09/20/2019 Chronic neck pain 09/20/2019 Personal history of stroke with current residual effects 05/11/2018 MADHU (generalized anxiety disorder) 11/26/2017 Bipolar disorder, current episode mixed, moderat e 10/23/2017 Tobacco use 11/05/2016 Asymmetric SNHL (sensorineural hearing loss) 03/2013 Tinnitus 03/12/2013 Low back pain 10/09/2012 Status post cervical spinal fusion 10/09/2012 Cervical spondylosis without myelopathy 10/10/19 13 DDD (degenerative disc disease), cervical 2012 Mixed hyperlipidemia 09/22/2012 Overactive bladder 09/22/2012 Hypothyroidism due to acquired atrophy of thyroi d 09/03/2012 Essential hypertension 09/03/2012 Resolved Problems Problem Noted Date Diagnosed Date Resolved Date Alcohol dependence in remission 12/26/2020 03/20/2021 Overview (01/18/2021): Added per 12.19.2020 PVQ Hemorrhage from tracheostomy stoma 05/31/2018 04/13/2019 On tube feeding diet 05/31/2018 019 Hypokalemia 05/31/2018 09/20/2019 Indwelling Cruz catheter present 05/31/2018 09/20/2019 Sepsis due to undetermined organism 05/08/2018 04/13/2019 MICHELLE (acute kidney injury) 05/08/2018 Coagulopathy 05/08/2018 04/13/2019 Acute liver failure with hepatic coma 05/08/2018 04/13/2019 Acute respiratory failure with hypoxia 05/08/2018 05/08/2018 Altered mental status, unspecified 05/08/2018 04/13/2019 Aspiration pneumonia 05/08/[address] of the head 05/08/201804/2019 Transaminitis 05/08/2018 04/13/2019 Required emergency intubation 05/08/2018 04/13/2019 Acute respiratory failure wi th hypoxia and hypercarbia 05/08/2018 04/13/2019 Acute cystitis with hematuria 05/08/2018 04/13/2019 Chronic sinusitis 03/12/2013 04/09/2013 Gallstones 07/02/2012 07/24/2012 Unresponsive 04/13/2019 Acute renal failure 04/13/20 19 Pneumonia due to methicillin resistant Staphylococcus aureus 04/13/2019 Cerebrovascular accident (CVA) 09/20/2019 Acute encephalopathy 019 Hypokalemia due to inadequat e potassium intake 09/20/2019 Encounters Date Type Department Care Team Description 03/17/2025 Orders Only [facility] Health Information Management [facility] [address] [place] [address] Provider, Abstract 03/10/2025 1:40 PM CDT Office Visit [facility] [address] [place] [address] Jenny Roman, MADHU (generalized anxiety disorder) (Primary Dx); Screening [...] Atherosclerosis of aorta; Primary insomnia; Cigarette smoker 03/09/2025 External Device Data [facility] Provider, Abstract 02/17/2025 External Device Data [facility] Provider, Abstract 02/16/2025 External Device Data [facility] Provider, Abstract 01/19/2025 External Device Data [facility] Provider, Abstract 01/19/2025 Refill [facility] [address] [place] [address] Jenny Roman, DO Chronic obstructive pulmonary disease with hypoxia (CMS/HCC); Chronic respiratory failure with hypoxia and hypercapnia (CMS/HCC); Dyspnea on exertion; Chronic respiratory failure with hypoxia, on home O2 therapy (CMS/HCC); Dependence on continuous supplemental oxygen 12/28/2024 Refill [facility] [address] [place] [address] Jenny Roman DO MADHU (generalized anxiety disorder); Chronic neck pain from Last 3 Months Immunizations Immunization Administration Dates Next Due (PNEUMOVAX 23)(50 YRS UP) PN EUMOCOCCAL POLYSACCHARIDE (PPV23) 0.5 ML, IM 05/20/2018 INFLUENZA VACCINE QUADRIVALENT 6 MOS UP PF IM Influenza Seasonal Unspecified Formulation IM Influenza Vaccine Tri Split 4+ Im 05/25/2015 Pneumococcal Polysaccharide Vacc 23-radha IM SCHIP 05/20/2018,06/16/2014 Family History Medical History Relation Name Comments Heart Attack Father Hypertension Father Diabetes Maternal Cousin Breast Cancer Mother Cervical Cancer Mother Thyroid Cancer Mother Ulcers Mother Other Paternal Aunt 1 mental illne ss Heart Attack Paternal Aunt 2 Colon Cancer Paternal Aunt 3 Heart Attack Paternal Uncle Breast Cancer Sister 1 METASTATIC CAN CER Hypertension Sister 2 Relation Name Status Comments Daughter Alive Father Maternal Cousin Alive Maternal Grandmother Mother Paternal Aunt 1 Paternal Aunt 2 Paternal Aunt 3 Paternal Uncle Sister 1 Sister 2 Alive Son 1 Alive Son 2 ACCIDENT Son 3 Alive Social History Tobacco Use Types Packs/Day Years Used Date Smoking Tobacco: Every Day Cigarettes Smokeless Tobacco: Never Tobacco Cessation:Ready to Q uit: Not Asked; Counseling Given: Not Answered Alcohol Use Standard Drinks/Week Comments Yes 0 (1 standard drink = 0.6 oz pur e alcohol) Comments No Sex and Gender Information Value Date Recorded Sex Assigned at Not on file Legal Sex Female 10:32 AM OCULAR CARE TECHNICIAN Gender Identity Not on file Sexual Orientation Not on file Last Filed Vital Signs Vital Sign Reading [...] Mass Index 23.78 03/10/2025 1:26 PM CDT Plan of Treatment Upcoming Encounters Date Type Department Care Team (Late st Contact Info) Description 09/16/2025 11:00 AM OCULAR CARE TECHNICIAN Office Visit [facility] [address] [place] [address] Jenny Roman, DO [address] [place] [address] 12/15/2025 1:00 PM CDT Office Visit [facility] [address] [place] [address] Jenny Roman, DO [address] [place] [address] Health Maintenance Due Date Last Done Comments DTAP/TDAP/TD VACCINES (1 - Tdap) 1974 FIT/FOBT Q 1 year 2000 Flex Sig/CT Colonography Q 5 years 2000 ZOSTER VACCINE (1 of 2) 2005 RSV VACCINE (60+ or ) (1 - Risk 60-74 years 1-dose series) 2015 PNEUMOCOCCAL VACCINE 50+ YEA RS (2 of 2 - PCV) 05/20/2019 05/20/2018, 05/20/2018, 06/16/2014 OSTEOPOROSIS SCREENING 04/16/2021 04/16/2016 [place] Preventative Visit/Annual Wellness Visit 08/05/2024 01/02/2024, 01/07/2023, 09/21/2021, Additional history exists BREAST CANCER SCREENING 10/06/2024 10/07/19 24, 05/29/2021, 09/25/2019, Additional history exists COLORECTAL SCREENING 02/01/2025 02/01/2015, 02/02/20 15 INFLUENZA VACCINE (#1) 2025 4, 05/06/2024, 09/21/2021, Additional history exists Colorectal Cancer Screening 09/22/2027 FIT-DNA Q 3 years 09/22/2027 09/22/2024 Procedures Procedure Name Priority Date/Time Associated Diagnosis Comments COMPREHENSIVE METABOLIC PANEL Routine 03/16/2025 10:23 AM CDT COLON CANCER SCREEN, STOOL DNA Routine 09/22/2024 4:30 PM OCULAR CARE TECHNICIAN Encounter for colorectal cancer screening MAMMO 3D ROXI SCREEN BILAT W OR WO CAD Routine 10/07/2023 Screening mammogram, encounter for ENDOSCOPY, COLON, SCREENING Routine 02/01/2015 from Last 3 Months or Most Recently Relevant to Health Maintenance Results * COMPREHENSIVE METABOLIC PANEL (03/16/2025 10:23 AM CDT) Blood us Abstract Provider CHEMISTRY ORDERABLES Final Res ult * (ABNORMAL) COLON CANCER SCREEN, STOOL DNA (09/22/2024 4:30 PM OCULAR CARE TECHNICIAN) COLOGUARD RESULT Positive( A) Negative [facility] Comment: POSITIVE TEST RESULT. A positive Cologuard result should be followed with a colonoscopy or visual examination of the colon. The normal value (reference range) for this assay is negative. TEST DESCRIPTION: Composite algorithmic analysis of stool DNA-biomarkers with hemoglobin immunoassay. Quantitative values of individual biomarkers are not reportable and are not associated with individual biomarker result reference ranges. Cologuard is intended for colorectal cancer screening of adults of either sex, 45 years or older, who are at average-risk for colorectal cancer (CRC). Cologuard has been approved for use by the U.S. FDA. The performance of Cologuard was established in a cross sectional study of average-risk adults aged 50-84. Cologuard performance in patients ages 45 to 49 years was estimated by sub-group analysis of near-age groups. Colonoscopies performed for a positive result may find as the most clinically significant lesion: colorectal cancer [4.0%], advanced adenoma (including sessile serrated polyps greater than or equal to 1cm diameter) [20%] or non- advanced adenoma [31%]; or no colorectal neoplasia [45%]. These estimates are derived from a prospective cross-sectional screening study of 10,000 individuals at average risk for colorectal cancer who were screened with both Cologuard and colonoscopy. (Karissa Gee. et al, N Engl J Med 2014;370(14):1503-0732.) Cologuard may produce a false negative or false positive result (no colorectal cancer or precancerous polyp present at colonoscopy follow up). A negative Cologuard test result does not guarantee the absence of CRC or advanced adenoma (pre-cancer). The current Cologuard screening interval is every 3 years. ([place] [employer] Society and U.S. Multi-Society Task Force). Cologuard performance data in a 10,000 patient pivotal study using colonoscopy as the reference method can be accessed at the following location: www.[employer]/results. Additional description of the Cologuard test process, warnings and precautions can be found at [email or web address].[email or web address]. Stool STOOL SPECIMEN / Unknown 09/22/2024 4:30 PM OCULAR CARE TECHNICIAN 09/24/2024 6:12 PM OCULAR CARE TECHNICIAN us Jenny Roman DO BODY FLUIDS AND STOOLS [facility] Result [facility] CLIA # [id number] [address], [address] [place] [address] * MAMMO SCRN BILAT 3D ROXI W OR WO CAD (10/07/2023) Anatomical Region Laterality Modality Breast Bilateral Mammography us Jenny Roman DO MAMMO ORDERABLES Final Resu lt * ENDOSCOPY, COLON, SCREENING (02/01/2015) us Abstract Provider GI PROCEDURE ORDERABLES Final Result from Last 3 Months or Most Recently Relevant to Health Maintenance Additional Health Concerns Infection Onset Date Last Indicated MRSA Comment:Sputum 05/13/18 05/13/2018 05/14/2018 Insurance MEDICAID [facility] [id number] Care Teams Water Resource Specialist Relationship Specialty Start Date End Date Jenny Roman DO [address] [place] [address] PCP - General Family Practice 03/16/19
--- OUTSIDE RECORDS SUMMARY | 2025-03-17 18:32 | XMS_ITS | Encounter Summary ---
Author Organization [facility] Address [address] [place] [address] Care Team Providers Care Local Intermodal Truck Driver Name Role Phone Jenny Roman DO Primary Care Provider Encounter Details Date Type Department Care Team (Late st Contact Info) Description 03/09/2025 External Device Data [facility] Provider, Abstract NO ADDRESS ON FILE Social History Tobacco Use Types Packs/Day Years Used Date Smoking Tobacco: Every Day Cigarettes Smokeless Tobacco: Never Alcohol Use Standard Drinks/Week Comments Yes 0 (1 standard drink = 0.6 oz pur e alcohol) Comments No Sex and Gender Information Value Date Recorded Sex Assigned at Not on file Legal Sex Female 10:32 AM DEVELOPMENTAL ELECTRONICS ASSEMBLER Gender Identity Not on file Sexual Orientation Not on file documented as of this encounter Plan of Treatment Upcoming Encounters Date Type Department Care Team (Late st Contact Info) Description 09/16/2025 11:00 AM DEVELOPMENTAL ELECTRONICS ASSEMBLER Office Visit [facility] [address] [place] [address] Jenny Roman DO [address] [place] [address] 12/15/2025 1:00 PM CDT Office Visit [facility] [address] [place] [address] Jenny Roman, DO [address] [place] [address] documented as of this encounter Visit Diagnoses Not on filedocumented in this encounter Additional Health Concerns Infection Onset Date Last Indicated Resolved Time MRSA Comment:Sputum 05/13/18 05/13/2018 05/14/2018 Assessment Noted Time PHQ-9 Depression Total Score: 6 01/02/20 24 1:11 PM CDT documented as of this encounter Care Teams Local Intermodal Truck Driver Relationship Specialty Start Date End Date Jenny Roman DO [address] [place] [address] PCP - General Family Practice 03/16/19 documented as of this encounter
== END 2025-03-17 03:01 | disposition home or self-care (01) ==
PROVIDERS: Emergency Provider Emergency Medicine; PCP Family Medicine
DX: J44.1 Chronic obstructive pulmonary disease with (acute) exacerbation (principal); J96.11 Chronic respiratory failure with hypoxia; E86.0 Dehydration; Z11.52 Encounter for screening for COVID-19; F17.210 Nicotine dependence, cigarettes, uncomplicated
CPT/HCPCS: 36415; 36600; 71045; 80051; 80053; 82330; 82805; 83605; 83690; 84484; 85025; 87040; 87637; 93005; 94640; 96374; 96375; 99285; J2405; J2919; J3490; J7040; J7613; J9999

== ENCOUNTER → 2025-05-25 11:07 | Outpatient (BNVA) | payer OTHER, MEDICAID, SELFPAY | PROVIDERS: PCP Family Medicine; Visit Provider Surgery | DX: R19.5 Other fecal abnormalities (principal); R11.0 Nausea; R10.10 Upper abdominal pain, unspecified | CPT/HCPCS: 99204 ==

== ENCOUNTER 2025-06-03 07:42 | Day surgery (SDC) | payer OTHER, MEDICAID, SELFPAY ==
[2025-06-03 08:14] VITALS: BP 188/139; PULSE 65; RESP 16; TEMP 36.8; O2SAT 93; BMI 24.7
--- NOTE | 2025-06-03 08:32 | W.PM.OPSUD ---
Surgery/Procedure H&P Update DATE OF PROCEDURE: June 03, 2025 DATE H&P PERFORMED: 05/25/25 H&P UPDATE INFORMATION: I have reviewed H&P completed within last 30 days, I have examined patient prior to procedure, No changes to prior documentation, H&P is in [facility] EMR on date indicated and Risks and benefits of the procedure reviewed PLANNED PROCEDURE: Operation Date: 06/03/25 09:30 Proposed Procedures p EGD EGD with Biopsy [id number] G0105 R10.9 R11.0 Z12.11(Not Applicable) - Errol Mckeon MD s Colonoscopy(Not Applicable) - Errol Mckeon MD
--- NOTE | 2025-06-03 08:56 | ANES.PREANE2 ---
Pre-Anesthetic Assessment Height/Weight: Height 1.55 m Weight 59.421 kg Temp Pulse Resp BP Pulse Ox O2 Del Method 98.2 F 65 16 188/139 93 Room Air 06/03/25 08:14 06/03/25 08:14 06/03/25 08:14 06/03/25 08:14 06/03/25 08:14 06/03/25 08:14 Operation Date: 06/03/25 09:30 Proposed Procedures p EGD EGD with Biopsy [id number] G0105 R10.9 R11.0 Z12.11(Not Applicable) - Errol Mckeon MD s Colonoscopy(Not Applicable) - Errol Mckeon MD Familial anesthetic complications: none Was Beta Talat taken within 24 hours: N/A (will give here) Was Clonidine taken within 24 hours: N/A Last intake: Intake Last Liquid Date 06/02/25 Last Liquid Time 20:00 Last Solid Date 06/01/25 Last Solid Time 20:00 Social Alcohol and Tobacco Exam alert, oriented x 3, clear to auscultation bilaterally and regular rate & rhythm Airway Mallampati: Class II Dentition: false Pulmonary Chronic Obstructive Pulmonary Disease CV/HEM Hypertension Metabolic Hyperlipidemia and Thyroid Disease Anesthetic Plan ASA status: 4 Anesthesia: MAC Risk of > 500 ml blood loss (7ml/kg in children): No Medications/Allergies Home Medications ?Medication ?Instructions ?Recorded ?Confirmed ?Last Taken ?Type clonazepam 0.5 mg tablet 0.5 mg PO BID PRN Anxiety 10/21/19 06/03/25 05/31/25 History gemfibrozil 600 mg tablet 600 mg PO BID 10/21/19 06/03/25 05/31/25 History hydralazine 25 mg tablet 25 mg PO BID 10/21/19 06/03/25 05/31/25 History metoprolol tartrate 50 mg tablet 50 mg PO BID 10/21/19 06/03/25 05/31/25 History pravastatin 80 mg tablet 80 mg PO DAILY 10/21/19 06/03/25 05/31/25 History pregabalin 50 mg capsule (Lyrica) 50 mg PO Q12H 10/21/19 06/03/25 06/03/25 History tramadol 50 mg tablet 50 mg PO QID PRN Pain 10/21/19 06/03/25 06/03/25 History lisinopril 20 mg tablet 20 mg PO QAM 03/14/22 06/03/25 05/31/25 History albuterol sulfate 90 mcg/actuation 2 puff inhalation QID PRN 12/24/22 06/03/25 12/24/22 History aerosol inhaler (Ventolin HFA) Shortness Of Breath see pharmacy comment escitalopram oxalate 20 mg tablet 20 mg PO QAM 12/24/22 06/03/25 05/31/25 History (Lexapro) levothyroxine 50 mcg tablet 50 mcg PO QAM 12/24/22 06/03/25 05/31/25 History trazodone 100 mg tablet 200 mg PO BEDTIME 12/24/22 06/03/25 05/31/25 History ondansetron 4 mg disintegrating 4 mg PO Q8H PRN nausea and 03/17/25 06/03/25 Unknown Rx tablet vomiting #10 tabs Allergies Allergy/AdvReac Type Severity Reaction Status Date / Time alprazolam (From Xanax) Allergy unknown Verified 05/25/25 11:14 aripiprazole (From Abilify) Allergy unknown Verified 05/25/25 11:14 fentanyl Allergy unknown Verified 05/25/25 11:14 morphine Allergy unknown Verified 05/25/25 11:14 quetiapine (From Seroquel) Allergy unknown Verified 05/25/25 11:14 sertraline (From Zoloft) Allergy unknown Verified 05/25/25 11:14 Current Medications Generic Name Dose Route Start Last Admin Trade Name Freq PRN Reason Stop Dose Admin Sodium Chloride 1,000 mls @ 15 mls/hr 06/03/25 08:03 06/03/25 08:27 Sodium Chloride 0.9% IV 06/04/25 08:02 15 mls/hr .Q24H PRN Administration COLONOSCOPY FLUIDS PFSH Anesthesia Medical History (Updated 05/25/25 @ 16:09 by Errol Mckeon MD) Acute exacerbation of chronic obstructive airways disease Nicotine dependence, cigarettes, with other nicotine-induced disorders Alcohol dependence, in remission Major depressive disorder, recurrent severe without psychotic features Social History Smoking and tobacco/nicotine status: never used tobacco/nicotine Quit status (tobacco/nicotine): has tried quititng Number of times tried to quit tobacco: 10 Second hand smoke exposure: Yes Alcohol intake: former Substance/Drug Use: former
[2025-06-03] MEDS: metoprolol tartrate 1 mg/1 mL SDV 5 mL 5 MG IVP (09:10)
[2025-06-03 09:14] VITALS: BP 172/112; PULSE 61
[2025-06-03 09:19] VITALS: BP 213/91; PULSE 60
[2025-06-03 10:23] VITALS: BP 184/81; PULSE 53; RESP 16; TEMP 36.2; O2SAT 100
[2025-06-03 10:33] VITALS: BP 154/87; PULSE 55; RESP 17; O2SAT 95
[2025-06-03 10:43] VITALS: BP 176/83; PULSE 57; RESP 16; O2SAT 96
--- NOTE | 2025-06-03 10:50 | ANE.PACU2 ---
Inpatient post-anesthesia follow up: Airway intact: Yes Vital signs: Temperature 97.1 F Pulse Rate 57 Respiratory Rate 16 Blood Pressure 176/83 Pulse Oximetry 96 Oxygen Delivery Me thod Room Air Oxygen Flow Rate Fraction of Inspir ed Oxygen Hydration adequate: Yes Nausea and vomiting: No Pain level: 1 Mental status: Baseline
== END 2025-06-03 10:54 | disposition home or self-care (01) ==
PROVIDERS: PCP Family Medicine; Visit Provider Surgery
PROC: 0DJD8ZZ Inspection of Lower Intestinal Tract, Via Natural or Artificial Opening Endoscopic (ICD-10-PCS; CPT 45378; 2025-06-03 09:30)
PROC: 0DJ08ZZ Inspection of Upper Intestinal Tract, Via Natural or Artificial Opening Endoscopic (ICD-10-PCS; 2025-06-03 09:30)
DX: Z12.11 Encounter for screening for malignant neoplasm of colon (principal); R19.5 Other fecal abnormalities; D12.5 Benign neoplasm of sigmoid colon; R10.9 Unspecified abdominal pain; K29.70 Gastritis, unspecified, without bleeding; K29.80 Duodenitis without bleeding; J44.9 Chronic obstructive pulmonary disease, unspecified; I10 Essential (primary) hypertension; E78.5 Hyperlipidemia, unspecified; E07.9 Disorder of thyroid, unspecified; F32.9 Major depressive disorder, single episode, unspecified; F17.210 Nicotine dependence, cigarettes, uncomplicated
CPT/HCPCS: 43239; 45380; 88305; J2704; J3490; J7030